=== PATIENT | female | born 1950 | race Caucasian/White ===

== ENCOUNTER 2017-03-09 08:35 | Emergency (ER) | payer MEDICARE ==
--- NOTE | 2017-03-09 08:40 | PDOC ---
History of Present Illness - General Stated Complaint: HEADACHE Time Seen by Provider: 03/09/17 08:40 - History of Present Illness Initial Comments: 03/09/17 08:59 66yo female presents ambulatory from home c/o L facial pressure and ricks. States she suffers from sinusitis and gets sinusitis every 2-3 months. States she started with a gradual onset of sinusitis on Friday. Saw a [facility] PMD on friday who started tessalon cough medicine and augmentin for poss sinusitis. States the ricks and facial pressure has not lessened. Denies f/c. No meningeal signs. States she is coughing - nonproductive. States she has been using nasal spray, but feels congested. No sore throat. States nausea - no vomiting or diarrhea. No abd pain. States she hasn't eaten since Friday. Denies blurred vision. States cp only when coughing, but feels SOB with the cough. Denies all other complaints. PMHx: HTN, HLD, Hypothyroid quit smoking 25 years ago NKDA 03/09/17 09:02 Past History - Past Medical History Allergies/Adverse Reactions: Allergies Allergy/AdvReac Type Severity Reaction Status Date / Time No Known Allergies Allergy Verified 03/09/17 08:48 Home Medications: Ambulatory Orders Fluvastatin Na [LESCOL (Nf) -] 20 mg PO DAILY 02/06/15 Levothyroxine [Synthroid -] 25 mcg PO DAILY 02/06/15 Albuterol Sulfate Inhaler - [Ventolin HFA Inhaler -] 1 - 2 inh PO Q4H PRN #1 inhaler 03/09/17 Atenolol [Tenormin -] 50 mg PO DAILY 03/09/17 Doxycycline Hyclate 100 mg PO BID #14 capsule 03/09/17 Inhaler, Assist Devices [Space Chamber Plus] 1 each MC Q4H PRN #1 spacer Lisinopril 20 mg PO DAILY 03/09/17 HTN: Yes Hypercholesterolemia: Yes Thyroid Disease: Yes (HYPO) - Suicide/Smoking/Psychosocial Hx Smoking History: Former smoker Number of Cigarettes Smoked Daily: 20 If you are a former smoker, when did you quit?: 25 YRS Hx Alcohol Use: No Drug/Substance Use Hx: No Substance Use Type: None Review of Systems - Review of Systems Able to Perform ROS?: Yes Is the patient limited Sinhala proficient: No Constitutional: No: Chills, Fever HEENTM: Yes: Nose Congestion. No: Eye Pain, Blurred Vision, Double Vision, Tinnitus, Throat Pain, Mouth Pain Respiratory: Yes: Cough, Shortness of Breath. No: Orthopnea, Wheezing, Productive cough Cardiac (ROS): Yes: Chest Tightness. No: Chest Pain, Irregular Heart Rate, Palpitations ABD/GI: Yes: Nausea, Poor Appetite, Poor Fluid Intake. No: Abdominal Distended , Diarrhea, Vomiting : No: Burning, Dysuria Musculoskeletal: No: Back Pain Neurological: Yes: Headache, Dizziness. No: Numbness, Paresthesia, Weakness All Other Systems: Reviewed and Negative *Physical Exam - Vital Signs 03/09/17 08:59 Selected Entries 03/09/17 08:39 Temperature 98.8 F Pulse Rate 104 H Respiratory 18 Rate Blood Pressure 159/83 Blood Pressure 108 Mean O2 Sat by Pulse 97 Oximetry (%) Weight 81.647 kg - Physical Exam General Appearance: Yes: Nourished, Appropriately Dressed, Apparent Distress, Moderate Distress HEENT: positive: EOMI, NEDRA, Normal Voice, Symmetrical, TMs Normal, Pharynx Normal, Nasal Congestion, Sinus Tenderness. negative: Pharyngeal Erythema, Tonsillar Exudate, Tonsillar Erythema, Rhinorrhea, TM Bulging Neck: positive: Supple. negative: Tender, Rigid, Rigidity Respiratory/Chest: positive: Lungs Clear, Normal Breath Sounds. negative: Respiratory Distress Cardiovascular: positive: Regular Rhythm, S1, S2, Tachycardia Gastrointestinal/Abdominal: positive: Flat, Soft. negative: Guarding, Rebound Lymphatic: negative: Adenopathy Musculoskeletal: negative: Normal Inspection, CVA Tenderness Extremity: positive: Normal Capillary Refill, Normal Inspection, Normal Range of Motion. negative: Calf Tenderness Integumentary: positive: Normal Color, Dry, Warm Neurologic: positive: assembler gold frame II-XII NML intact, Fully Oriented, Alert, Normal Mood/ Affect, Normal Response, Motor Strength 5/5 Heart Score/ECG Review - ECG Intrepretation Comment:: 03/09/17 09:09 sinus at 98, nl axis, nl interval, no acute st/t wave findings ED Treatment Course - LABORATORY CBC & Chemistry Diagram: 03/09/17 11:45 03/09/17 09:15 Medical Decision Making - Medical Decision Making 03/09/17 09:05 a/p: 66yo female with persistent ricks x 5 days -has been on abx since friday -suspect nausea secondary to augmentin use without oral intake -suspect poss viral sinusitis given that the patient has not had f/c and was gradual onset -will check labs, ekg, cxr, head ct -will hydrate and give reglan for nausea/ricks -will monitor and reassess -albuterol/atrovent for cough/chest tightness (smoking hx in the past) 03/09/17 10:03 called by lab, WBC 1.9 pt states still with ricks, but starting to feel better no meningeal signs breathing better after neb 03/09/17 10:53 re-eval: pt feeling better. RICKS and nausea resolved. Still with bronchial cough. cxr clear will give another liter IVF hydration and will po challenge 03/09/17 11:07 L sinusitis on head ct pt on augmentin 500mg will change to 875, will give albuterol inhaler to go home RICKS resolved. 03/09/17 11:25 pt sitting up eating lunch 03/09/17 12:17 pt has been on augmentin since friday - will switch to doxycycline low wbc and plts discussed with the patient. both could be side effects of augmentin will switch abx this was discussed in full detail with the patient who states she will have her CBC checked again in 1 week with [facility]. Also recommended ENT follow up. Discussed all reasons to return to the ED and need for follow up. Recommended sinus rinses as well. *DC/Admit/Observation/Transfer Diagnosis at time of Disposition: Sinusitis, Thrombocytopenia, Leukopenia - Discharge Dispostion Disposition: HOME Condition at time of disposition: Stable Admit: No - Prescriptions Prescriptions: Albuterol Sulfate Inhaler - [Ventolin HFA Inhaler -] 1 - 2 inh PO Q4H PRN #1 inhaler PRN Reason: Shortness Of Breath Doxycycline Hyclate 100 mg PO BID #14 capsule Inhaler, Assist Devices [Space Chamber Plus] 1 each MC Q4H PRN #1 spacer PRN Reason: Shortness Of Breath - Referrals Referrals: Christophe Mancini MD [Staff Physician] - Grzegorz Reid MD [Staff Physician] - - Patient Instructions Printed Discharge Instructions: DI for Sinusitis, White Blood Cell Count, With Differential Additional Instructions: Please have your CBC repeat in 1 week. Please stop taking augmentin. Please start taking doxycycline. Please use the Sinus Rinse (over the counter). Please make a follow up appointment with your PMD this week and make a follow up appointment with ENT. Please return to the ED with any further complaints. - Post Discharge Activity
[2017-03-09] MEDS ORDERED: METOCLOPRAMIDE HCL INJECTION 10 MG/2 ML VIAL IVPUSH ONE (08:46)
[2017-03-09] MEDS ORDERED: SODIUM CHLORIDE 0.9% 1000 ML INFUS.BAG IV ONE ×2 (08:46→10:49)
[2017-03-09] MEDS ORDERED: ACETAMINOPHEN 1000 MG/100 ML VIAL (NON FORMULARY) IVPB ONE (08:46)
[2017-03-09 08:50] VITALS: BMI 30.9
[2017-03-09] MEDS ORDERED: ACETAMINOPHEN INJECTION 100 ML IVPB ONE (09:03)
[2017-03-09] MEDS ORDERED: ALBUTEROL SO4 2.5/IPRATROPIUM 0.5 INH SOL 3 ML VIAL.NEB. NEB ONE ×4 (09:05→11:27)
[2017-03-09 09:42] LABS: MCH 30.4 pg (25.7-33.7); MCHC 33.7 g/dl (32.0-36.0); MEAN CELL VOLUME 90.2 fl (80-96); MEAN PLT VOLUME 8.9 fl (7.5-11.1); PLATELET COUNT 144 K/MM3 (134-434)
[2017-03-09 09:59] LABS: WHITE BLOOD COUNT 1.9 K/mm3 (4.0-10.8)
[2017-03-09] MEDS ORDERED: DEXAMETHASONE SOD PHOSPHATE 10 MG/1 ML VIAL IVPUSH ONE (10:03)
[2017-03-09] MEDS ORDERED: MAGNESIUM SULF 50% (8.12 MEQ/2 ML-1 GM VIAL) IVPB ONE (10:03)
[2017-03-09] MEDS ORDERED: DEXAMETHASONE SOD PHOSPHATE 10 MG/1 ML VIAL ONE (10:07)
[2017-03-09] MEDS ORDERED: MAGNESIUM SULF 50% (8.12 MEQ/2 ML-1 GM VIAL) ONE (10:07)
[2017-03-09 10:23] LABS: ALBUMIN 4.3 g/dl (3.5-5.0); ALK PHOS 60 U/L (32-92); ANION GAP 11 (8-16); BILIRUBIN,TOTAL 0.5 mg/dl (0.2-1.0); CO2 23 mmol/L (22-28); CREATININE 0.8 mg/dl (0.6-1.3); GLUCOSE,RANDOM 100 mg/dl (74-106); MAGNESIUM 1.8 mg/dL (1.8-2.4); SGOT/AST 36 U/L (10-42); SGPT/ALT 23 U/L (10-40); TOT PROT 7.5 g/dl (6.4-8.3)
[2017-03-09] MEDS ORDERED: KETOROLAC TROMETHAMINE 15 MG/ML VIAL IVPUSH ONE (11:04)
[2017-03-09] MEDS ORDERED: AMOX TR/POT CLAV 875MG/125MG TABLETS (FP) PO ONE (11:06)
[2017-03-09] MEDS ORDERED: AMOX TR/POT CLAV 875MG/125MG TABLETS (FP) ONE (11:28)
[2017-03-09] MEDS ORDERED: KETOROLAC TROMETHAMINE 15 MG/ML VIAL ONE (11:28)
[2017-03-09 11:56] VITALS: BP 114/45; PULSE 86; TEMP 98.9
[2017-03-09 12:02] LABS: MCH 30.1 pg (25.7-33.7); MCHC 33.3 g/dl (32.0-36.0); MEAN CELL VOLUME 90.4 fl (80-96); MEAN PLT VOLUME 8.5 fl (7.5-11.1); PLATELET COUNT 120 K/MM3 (134-434); RDW 12.2 % (11.6-15.6); WHITE BLOOD COUNT 2.1 K/mm3 (4.0-10.8)
[2017-03-09 12:45] LABS: REACTIVE LYMPHOCYTES 7 % (0-80); SMUDGE CELLS 1+
[2017-03-09 12:50] LABS: PLATELET COMMENTS SLT PLT CLUMPING; PLATELET ESTIMATE ADEQUATE
--- NOTE | 2017-03-10 12:17 | EKG ---
Test Reason : Blood Pressure : / mmHG Vent. Rate : 098 BPM Atrial Rate : 098 BPM P-R Int : 144 ms QRS Dur : 078 ms QT Int : 348 ms P-R-T Axes : 020 -04 025 degrees QTc Int : 444 ms NORMAL SINUS RHYTHM NORMAL ECG NO PREVIOUS ECGS AVAILABLE Confirmed by JV HERNANDEZ MD ([id number] on 03/10/2017 12:17:23 PM Referred By: UVALDO Confirmed By:JV HERNANDEZ MD
== END 2017-03-09 12:42 | disposition home or self-care (01) ==
LOC: FER 08:35
PROC: 3E0337Z Introduction of Electrolytic and Water Balance Substance into Peripheral Vein, Percutaneous Approach (ICD-10-PCS; principal; 2017-03-09)
PROC: 3E033GC Introduction of Other Therapeutic Substance into Peripheral Vein, Percutaneous Approach (ICD-10-PCS; 2017-03-09)
PROC: 3E0333Z Introduction of Anti-inflammatory into Peripheral Vein, Percutaneous Approach (ICD-10-PCS; 2017-03-09)
PROC: 3E033NZ Introduction of Analgesics, Hypnotics, Sedatives into Peripheral Vein, Percutaneous Approach (ICD-10-PCS; 2017-03-09)
DX: J32.9 Chronic sinusitis, unspecified (principal); D69.6 Thrombocytopenia, unspecified; D72.819 Decreased white blood cell count, unspecified
CPT/HCPCS: 36415; 70450-TC; 71020-TC; 80053; 83735; 85025; 93005; 99283-25

== ENCOUNTER 2017-03-13 08:06 | Emergency (ER) | payer MEDICARE ==
[2017-03-13 08:12] VITALS: BP 177/87; PULSE 85; TEMP 97.4; BMI 30.9
[2017-03-13] MEDS ORDERED: MECLIZINE HCL 25 MG TABLET (FP) PO ONE (08:56)
[2017-03-13] MEDS ORDERED: SODIUM CHLORIDE 0.9% 500 ML INFUS.BAG IV ONE ×2 (08:56→10:22)
[2017-03-13] MEDS ORDERED: ONDANSETRON 4 MG/2 ML VIAL IVPUSH ONE (08:56)
[2017-03-13] MEDS ORDERED: MECLIZINE HCL 25 MG TABLET (FP) ONE (08:58)
[2017-03-13] MEDS ORDERED: ONDANSETRON 4 MG/2 ML VIAL ONE (08:58)
--- NOTE | 2017-03-13 09:12 | PDOC ---
History of Present Illness - General Chief Complaint: Lightheaded Stated Complaint: DIZZY,SINUS INFECTION Time Seen by Provider: 03/13/17 08:56 History Source: Patient Exam Limitations: No Limitations - History of Present Illness Initial Comments: 03/13/17 08:58 Pt presents to the ED complaining of nasal congestion, sinus pressure and vertigo that have been persistent for the last 8 days. These symptoms are consistent with prior sinus infections. Denies fevers, but does complain of chills. Patient was seen by her PMD for these complaints and started on augmentin. Her symptoms did not improve, so she presented to the [place] ED on 03/09. While there, she had a CT scan that demonstrated maxillary sinusitis and a CXR that was negative. She had a mildly decreased WBC count, so antibiotics were changed from augmentin to doxycycline. She presents today because she still has nasal congestion and because she had an episode of vertigo that was accompanied by severe nausea and vomiting this AM. She is very clear that episodes of vertigo always accompany her sinus infections, and that her symptoms today are similar to previous sinus infections. Patient states that she has had decreased appetite for solid food, but that she has been tolerating PO fluids until this AM. Past History - Past Medical History Allergies/Adverse Reactions: Allergies Allergy/AdvReac Type Severity Reaction Status Date / Time No Known Allergies Allergy Verified 03/09/17 08:48 Home Medications: Ambulatory Orders Fluvastatin Na [LESCOL (Nf) -] 20 mg PO DAILY 02/06/15 Levothyroxine [Synthroid -] 25 mcg PO DAILY 02/06/15 Atenolol [Tenormin -] 50 mg PO DAILY 03/09/17 Doxycycline Hyclate 100 mg PO BID #14 capsule 03/09/17 Lisinopril 20 mg PO DAILY 03/09/17 Meclizine HCl [Antivert -] 25 mg PO QID #28 tablet 03/13/17 Ondansetron [Zofran Odt -] 4 mg SL TID PRN #10 od.tablet 03/13/17 COPD: No HTN: Yes Hypercholesterolemia: Yes Thyroid Disease: Yes (HYPO) - Suicide/Smoking/Psychosocial Hx Smoking History: Former smoker Have you smoked in the past 12 months: No Number of Cigarettes Smoked Daily: 20 If you are a former smoker, when did you quit?: 25 YRS Information on smoking cessation initiated: No Hx Alcohol Use: No Drug/Substance Use Hx: No Substance Use Type: None Review of Systems - Review of Systems Constitutional: Yes: Chills, Loss of Appetite, Malaise. No: Symptoms Reported, See HPI, Diaphoresis, Fever, Night Sweats, Weakness, Weight Stable, Unintentional Wgt. Loss, Unexplained wgt Loss, Other HEENTM: Yes: Nose Congestion, Throat Pain. No: Symptoms Reported, See HPI, Eye Pain, Blurred Vision, Tearing, Recent change in vision, Double Vision, Cataracts , Ear Pain, Ocular Prothesis, Ear Discharge, Nose Pain, Tinnitus, Nose Bleeding , Hearing Loss, Throat Swelling, Mouth Pain, Dental Problems, Difficulty Swallowing, Mouth Swelling, Other Respiratory: Yes: Cough. No: Symptoms reported, See HPI, Orthopnea, Shortness of Breath, SOB with Exertion, SOB at Rest, Stridor, Wheezing, Productive cough, Hemoptysis, Other Cardiac (ROS): No: Symptoms Reported, See HPI, Chest Pain, Edema, Irregular Heart Rate, Lightheadedness, Palpitations, Syncope, Chest Tightness, Other ABD/GI: Yes: Nausea, Vomiting. No: Symptoms Reported, See HPI, Abdominal Distended, Abd. Pain w/ defecation, Blood Streaked Bowels, Constipated, Diarrhea , Difficulty Swallowing, Poor Appetite, Poor Fluid Intake, Rectal Bleeding, Indigestion, Abdominal cramping, Tarry Stools, Other Musculoskeletal: No: Symptoms Reported, See HPI, Back Pain, Gout, Joint Pain, Joint Swelling, Muscle Pain, Muscle Weakness, Neck Pain, Joint Stiffness, Other Integumentary: No: Symptoms Reported, See HPI, Bruising, Change in Color, Change in Hair/Nails, Dryness, Erythema, Flushing, Lesions, Lumps, Pallor, Pruritus, Rash, Sweating, Other Neurological: Yes: Headache, Dizziness. No: Symptoms reported, See HPI, Numbness, Paresthesia, Pre-Existing Deficit, Seizure, Tingling, Tremors, Weakness, Unsteady Gait, Ataxia, Other *Physical Exam - Vital Signs Last Vital Signs Temp Pulse Resp BP Pulse Ox 97.4 F L 85 20 177/87 100 03/13/17 08:06 03/13/17 08:06 03/13/17 08:06 03/13/17 08:06 03/13/17 08:06 - Physical Exam General Appearance: Yes: Nourished, Appropriately Dressed, Obese. No: Apparent Distress, Disheveled, Mild Distress, Moderate Distress, Severe Distress, Alcohol on Breath, Intoxicated, Cachetic, Thin, Other HEENT: positive: Normal ENT Inspection, Normal Voice, TMs Normal, Pharyngeal Erythema, Nasal Congestion, Sinus Tenderness, Hearing Grossly Normal Neck: positive: Trachea midline, Supple Respiratory/Chest: positive: Rhonchi (+ rhonchi at both bases) Cardiovascular: positive: Regular Rhythm, Regular Rate, S1, S2 Gastrointestinal/Abdominal: positive: Flat, Soft. negative: Normal Bowel Sounds , Tender, Organomegaly, Pulsatile Mass, Increased Bowel Sounds, Decreased BS, Protuberent, Distended, Guarding, Rebound, Tenderness, Hernia, Mass, Hepatomegaly, Spleenomegaly, Other Musculoskeletal: positive: Normal Inspection Integumentary: positive: Normal Color, Dry, Warm Neurologic: positive: health information clerk II-XII NML intact, Fully Oriented, Alert, Normal Mood/ Affect, Motor Strength 5/5 (normal gait) Medical Decision Making - Medical Decision Making 03/13/17 09:15 Pt presents to the ED complaining of persistent sinus discomfort after 4 days of antibotics. complains of vertigo, but symptoms are unlikely to be caused by central vertigo since she is neurologically intact and able to ambulate with a steady gait, and since she reports vertigo that recurs with her sinus infections. Patient has already had CT head that showed maxillary sinusitis and CXR that was clear. Although lungs are not clear on my exam, patient has recent negative CXR and is already on antibiotics that are appropriate for PNA. Will treat symptomatically with Iv hydration, zofran and meclizine and reassess. 03/13/17 12:19 Patient feels improved after IV hydration, vertigo treatment and nausea control. Will discharge home. *DC/Admit/Observation/Transfer Diagnosis at time of Disposition: Vertigo Sinusitis Qualifiers: Sinusitis location: maxillary Chronicity: acute Recurrence: recurrent Qualified Code(s): J01.01 - Acute recurrent maxillary sinusitis - Discharge Dispostion Disposition: HOME Condition at time of disposition: Good Admit: No - Prescriptions Prescriptions: Meclizine HCl [Antivert -] 25 mg PO QID #28 tablet Ondansetron [Zofran Odt -] 4 mg SL TID PRN #10 od.tablet PRN Reason: Nausea And/Or Vomiting - Referrals Referrals: Harish Suarez MD [Staff Physician] - - Patient Instructions Printed Discharge Instructions: DI for Vertigo Additional Instructions: return to the ED for fever, shortness of breath, severe nausea and vomiting unable to keep fluids down despite zofran, vertigo that is so severe that you are unable to walk, other new or worsening symptoms. Make sure that you call ENT for an appointment. Follow up with your PMD this week. MAke sure that you take the doxycycline until it is all gone. - Post Discharge Activity
[2017-03-13] MEDS ORDERED: diazePAM CARPU-JECT 10 MG/2 ML DISP.SYRIN IVPUSH ONE (10:20)
[2017-03-13] MEDS ORDERED: METOCLOPRAMIDE HCL INJECTION 10 MG/2 ML VIAL IVPUSH ONE (10:20)
[2017-03-13] MEDS ORDERED: LORazepam 2 MG/ML SDV VIAL ONE (10:29)
== END 2017-03-13 12:29 | disposition home or self-care (01) ==
LOC: FER 08:06
PROC: 3E0337Z Introduction of Electrolytic and Water Balance Substance into Peripheral Vein, Percutaneous Approach (ICD-10-PCS; principal; 2017-03-13)
DX: R42 Dizziness and giddiness (principal); J01.01 Acute recurrent maxillary sinusitis; I10 Essential (primary) hypertension; Z87.891 Personal history of nicotine dependence; E03.9 Hypothyroidism, unspecified; E78.00 Pure hypercholesterolemia, unspecified
CPT/HCPCS: 99284-25

== ENCOUNTER 2018-05-04 09:37 | Inpatient (IN) | payer OTHER ==
--- NOTE | 2018-05-04 09:40 | PDOC ---
History of Present Illness - General Chief Complaint: Injury Stated Complaint: FALL Time Seen by Provider: 05/04/18 09:40 History Source: Patient Exam Limitations: No Limitations - History of Present Illness Initial Comments: 05/04/18 09:49 67 year old woman with a history of HTN who presents after walking her dog outside and slipping ice such that her right foot slipped forward and she landed on her R hip. She was unable to stand up or bear weight and crawled to a chair where she called for help for approx 1 hour until her found her and called EMS. She does not take any anticoagulants. She has not been able to bear weight since the fall and describes the pain as localized to the R hip with occasional shooting pain. She denies head or neck trauma, loss of consciousness, chest pain, shortness of breath, abdominal pain or any other complaints at bedside. She is in visible distress and crying at bedside. Past History - Past Medical History Allergies/Adverse Reactions: Allergies Allergy/AdvReac Type Severity Reaction Status Date / Time No Known Allergies Allergy Verified 05/04/18 10:06 Home Medications: Ambulatory Orders Fluvastatin Na [LESCOL (Nf) -] 20 mg PO DAILY 02/06/15 Levothyroxine [Synthroid -] 25 mcg PO DAILY 02/06/15 Atenolol [Tenormin -] 50 mg PO DAILY 03/09/17 Doxycycline Hyclate 100 mg PO BID #14 capsule 03/09/17 Lisinopril 20 mg PO DAILY 03/09/17 Meclizine HCl [Antivert -] 25 mg PO QID #28 tablet 03/13/17 Ondansetron [Zofran Odt -] 4 mg SL TID PRN #10 od.tablet 03/13/17 COPD: No HTN: Yes Hypercholesterolemia: Yes Thyroid Disease: Yes (HYPO) - Suicide/Smoking/Psychosocial Hx Smoking History: Former smoker Have you smoked in the past 12 months: No Number of Cigarettes Smoked Daily: 20 If you are a former smoker, when did you quit?: 25 YRS Hx Alcohol Use: No Drug/Substance Use Hx: No Substance Use Type: None Review of Systems - Review of Systems Able to Perform ROS?: Yes Is the patient limited Lao proficient: No Constitutional: No: Chills, Diaphoresis, Fever HEENTM: No: Tinnitus Respiratory: No: Cough, Orthopnea, Shortness of Breath Cardiac (ROS): No: Chest Pain, Lightheadedness, Palpitations, Syncope ABD/GI: No: Constipated, Diarrhea, Nausea, Vomiting : No: Burning, Dysuria, Incontinence Musculoskeletal: Yes: Joint Pain, Muscle Pain Neurological: No: Headache, Numbness, Tingling *Physical Exam - Physical Exam Comments: 05/04/18 10:06 GENERAL: Awake, alert, and fully oriented, in distress, crying HEAD: No signs of trauma, normocephalic, atraumatic EYES: EOMI, sclera anicteric, conjunctiva clear ENT: oropharynx clear without exudates. Moist mucosa NECK: Normal ROM, supple LUNGS: No distress, speaks full sentences, clear to auscultation bilaterally HEART: Regular rate and rhythm, normal S1 and S2, no murmurs, rubs or gallops, peripheral pulses normal and equal bilaterally. ABDOMEN: Soft, nontender, normoactive bowel sounds. No guarding, no rebound. No masses EXTREMITIES : Normal inspection, limited R hip and R knee ROM 2/2 pain, 5/5 dorsal and plantar flexion, nv intact, no pain to direct R hip palpation, no edema. No clubbing or cyanosis. NEUROLOGICAL: Cranial nerves II through XII grossly intact. Normal speech, no focal sensorimotor deficits SKIN: Warm, Dry, normal turgor, no rashes or lesions noted ED Treatment Course - LABORATORY CBC & Chemistry Diagram: 05/04/18 09:54 05/04/18 09:54 Medical Decision Making - Medical Decision Making 05/04/18 09:53 67 year old woman with a history of HTN who presents after walking her dog outside and slipping ice such that her right foot slipped forward and she landed on her R hip. She was unable to stand up or bear weight and crawled to a chair where she called for help for approx 1 hour until her found her and called EMS. She does not take any anticoagulants. She has not been able to bear weight since the fall and describes the pain as localized to the R hip with occasional shooting pain. ED Course: consider fx vs dislocation vs contusion cbc, cmp, typescreen, ptt, pt/inr, xr, ekg, cxr pain manage with IV 4 morphine 05/04/18 11:18 labs wnl XR w/ R displaced introtrochanter fx CXR: *DC/Admit/Observation/Transfer Diagnosis at time of Disposition: Closed right hip fracture Qualifiers: Encounter type: initial encounter Qualified Code(s): S72.001A - Fracture of unspecified part of neck of right femur, initial encounter for closed fracture - Discharge Dispostion Condition at time of disposition: Fair Decision to Admit order: Yes - Referrals - Patient Instructions - Post Discharge Activity
[2018-05-04] MEDS ORDERED: morphine CARPU-JECT 4 MG/1 ML DISP.SYRIN IVPUSH ONE (09:47)
[2018-05-04 10:14] LABS: BASO % 0.4 % (0-2.0); EOS % 0.7 % (0-4.5); HEMATOCRIT 37.8 % (32.4-45.2); HEMOGLOBIN 13.1 GM/dL (10.7-15.3); LYMPH % 21.6 % (8-40); MCH 31.3 pg (25.7-33.7); MCHC 34.5 g/dl (32.0-36.0); MEAN CELL VOLUME 90.6 fl (80-96); MEAN PLT VOLUME 8.4 fl (7.5-11.1); MONO % 4.9 % (3.8-10.2); NEUT % 72.4 % (42.8-82.8); PLATELET COUNT 188 K/MM3 (134-434); RBC 4.17 M/mm3 (3.60-5.2); WHITE BLOOD COUNT 6.9 K/mm3 (4.0-10.0)
--- NOTE | 2018-05-04 10:19 | PDOC ---
Attending Attestation - Resident Resident Name: Johanna Thurston - ED Attending Attestation I have performed the following: I have examined & evaluated the patient, The case was reviewed & discussed with the resident, I agree w/resident's findings & plan, Exceptions are as noted - HPI HPI: 05/04/18 10:13 67 year old female c/ hx of HTN presents with R hip pain s/p mechanical fall. Pt slipped on ice. Landed on right hip. Has not been able to get up. Denies numbness, weakness. C/o R hip pain. EMS activated and pt given 10 mg IM morphine. - Physicial Exam PE: 05/04/18 10:19 GENERAL: Awake, alert, and fully oriented, uncomfortable appearing HEAD: No signs of trauma EYES: EOMI, sclera anicteric, conjunctiva clear ENT: Auricles normal inspection, hearing grossly normal, nares patent, Moist mucosa NECK: Normal ROM, supple LUNGS: Breath sounds equal, clear to auscultation bilaterally. No wheezes, and no crackles HEART: Regular rate and rhythm, normal S1 and S2, no murmurs, rubs or gallops ABDOMEN: Soft, nontender, No guarding, no rebound. No masses EXTREMITIES: RLE: 2+ DP pulse. TTP R lateral hip. Shortened and externally rotated. Sensation intact throughout. No tenderness to R knee or ankle or femur. NEUROLOGICAL: Cranial nerves II through XII grossly intact. Normal speech SKIN: Warm, Dry, normal turgor, no rashes or lesions noted. - Medical Decision Making 05/04/18 10:20 Vital Signs Temp Pulse Resp BP Pulse Ox 98.3 F 97 H 20 149/73 99 05/04/18 09:39 05/04/18 09:39 05/04/18 09:39 05/04/18 09:39 05/04/18 09:39 R/o r hip fracture. Pt is neurovascularly intact. I agree with resident's plan for xray of R hip and pelvis. Labs, pain control and reassess. 05/04/18 11:08 CBC, BMP 05/04/18 09:54 05/04/18 09:54 CMP Sodium 141 mmol/L (136-145) 05/04/18 09:54 Potassium 3.7 mmol/L (3.5-5.1) 05/04/18 09:54 Chloride 107 mmol/L (98-107) 05/04/18 09:54 Carbon Dioxide 26 mmol/L (21-32) 05/04/18 09:54 Anion Gap 9 MMOL/L (8-16) 05/04/18 09:54 BUN 16 mg/dL (7-18) 05/04/18 09:54 Creatinine 0.8 mg/dL (0.55-1.3) 05/04/18 09:54 Creat Clearance w eGFR > 60 (>60) 05/04/18 09:54 Random Glucose 119 mg/dL (74-106) H 05/04/18 09:54 Calcium 9.0 mg/dL (8.5-10.1) 05/04/18 09:54 Total Bilirubin 0.4 mg/dL (0.2-1) 05/04/18 09:54 AST 13 U/L (15-37) L 05/04/18 09:54 ALT 17 U/L (13-61) 05/04/18 09:54 Alkaline Phosphatase 88 U/L (45-117) 05/04/18 09:54 Creatine Kinase 80 U/L (26-192) 05/04/18 09:54 Total Protein 7.5 g/dl (6.4-8.2) 05/04/18 09:54 Albumin 4.4 g/dl (3.4-5.0) 05/04/18 09:54 Pelvis xray, pending official review, demonstrates R hip fracture. Ortho consult. Admit. <Edwin Phillips - Last Filed: 05/04/18 11:09> - Medical Decision Making Call placed to taj Villatoro environmental compliance technician, made aware to make NPO now and he will see patient. 05/04/18 12:46 <Vini Champion - Last Filed: 05/04/18 12:48> Heart Score/ECG Review #1 ECG reviewed & interpreted by me at: 11:10 05/04/18 11:09 NSR 90, no std/geo, normal axis, normal intervals, QTC 484 msec <Edwin Phillips - Last Filed: 05/04/18 11:09> Attestations - Attestations 05/04/18 12:48 Documentation prepared by Vini Champion, acting as medical facilities section director for Edwin Pihllips MD. <Vini Champion - Last Filed: 05/04/18 12:48>
[2018-05-04] MEDS ORDERED: morphine SULFATE 4 MG/ML VIAL ONE (10:22)
[2018-05-04 10:32] LABS: INR 1.04 (0.83-1.09); PROTHROMBIN TIME (PATIENT) 12.3 SEC (9.7-13.0)
[2018-05-04 10:33] LABS: ALBUMIN 4.4 g/dl (3.4-5.0); ALK PHOS 88 U/L (45-117); ANION GAP 9 MMOL/L (8-16); BILIRUBIN,TOTAL 0.4 mg/dL (0.2-1); BLOOD UREA NITROGEN 16 mg/dL (7-18); CHLORIDE 107 mmol/L (98-107); CO2 26 mmol/L (21-32); CREATININE 0.8 mg/dL (0.55-1.3); GLUCOSE,RANDOM 119 mg/dL (74-106); POTASSIUM 3.7 mmol/L (3.5-5.1); SGOT/AST 13 U/L (15-37); SGPT/ALT 17 U/L (13-61); SODIUM 141 mmol/L (136-145); TOT PROT 7.5 g/dl (6.4-8.2)
[2018-05-04 10:35] LABS: ACTIVATED PTT 24.1 SECONDS (25.2-36.5)
--- NOTE | 2018-05-04 13:52 | EKG ---
Test Reason : Blood Pressure : / mmHG Vent. Rate : 090 BPM Atrial Rate : 090 BPM P-R Int : 142 ms QRS Dur : 088 ms QT Int : 396 ms P-R-T Axes : 061 023 035 degrees QTc Int : 484 ms NORMAL SINUS RHYTHM NONSPECIFIC ST ABNORMALITY ABNORMAL ECG WHEN COMPARED WITH ECG OF 09-MAR-2017 09:06, NO SIGNIFICANT CHANGE WAS FOUND Confirmed by CÉSAR MEEKS MD ([id number]) on 05/04/2018 1:51:58 PM Referred By: Confirmed By:CÉSAR MEEKS MD
--- NOTE | 2018-05-04 13:56 | CON.CARD ---
Consult Consult Specialty:: Cardiology Referred by:: Sandie Dyson MD Reason for Consultation:: Pre-operative cardiovascular evaluation - History of Present Illness Chief Complaint: s/p slip and fall History of Present Illness: 67 yo female with h/o HTN, hypothyroidism, hyperlipidemia, benign positional vertigo s/p slip on black ice and mechanical fall onto right hip pain and unable to weight bear, denies numbness or weaknes referable to right hip fracture planned for right IM gamma nail. She reports stable LEBRON while climbing stairs, but denies chest pain, near or true syncope, palpitations, orthopnea, PND or LE edema, vertigo prior to incident or change in exercise capacity. - History Source History Provided By: Patient Limitations to Obtaining History: No Limitations - Alcohol/Substance Use Hx Alcohol Use: No - Smoking History Smoking history: Former smoker Have you smoked in the past 12 months: No Aproximately how many cigarettes per day: 20 If you are a former smoker, when did you quit?: 25 YRS Home Medications - Allergies Allergies/Adverse Reactions: Allergies Allergy/AdvReac Type Severity Reaction Status Date / Time No Known Allergies Allergy Verified 05/04/18 10:06 - Home Medications Home Medications: Ambulatory Orders Levothyroxine [Synthroid -] 25 mcg PO DAILY 02/06/15 Atenolol [Tenormin -] 50 mg PO DAILY 03/09/17 Lisinopril 5 mg PO DAILY 05/04/18 Mometasone Furoate [Asmanex 110Mcg -] 1 inh IH DAILY 05/04/18 Simvastatin [Zocor -] 20 mg PO HS 05/04/18 Review of Systems - Review of Systems Musculoskeletal: reports: Joint Pain (Right hip pain) Vital Signs: Vital Signs Temperature 98.3 F 05/04/18 09:39 Pulse Rate 97 H 05/04/18 09:39 Respiratory Rate 20 05/04/18 09:39 Blood Pressure 149/73 05/04/18 09:39 O2 Sat by Pulse Oximetry (%) 99 05/04/18 10:06 Constitutional: Yes: No Distress, Calm Neck: Yes: Supple Respiratory: Yes: Regular, CTA Bilaterally Gastrointestinal: Yes: Normal Bowel Sounds, Soft Cardiovascular: Yes: Regular Rate and Rhythm JVD: No Carotid Bruit: No Heart Sounds: Yes: S1, S2 Extremities: Yes: External Rotation, Shortened Edema: No - Other Data Labs, Other Data: CBC, BMP 05/04/18 09:54 05/04/18 09:54 INR, PTT INR 1.04 (0.83-1.09) 05/04/18 09:54 NSR @ 90 nonspec T wave changes Ejection Fraction %: LVEF > or = 40 % Imaging - Results Chest X-ray: Report Reviewed (NAD) X-ray: Report Reviewed (Right IT fracture) EKG: Report Reviewed (SR @ 90) Problem List - Problems (1) Hypertension Code(s): I10 - ESSENTIAL (PRIMARY) HYPERTENSION Qualifiers: Hypertension type: essential hypertension Qualified Code(s): I10 - Essential (primary) hypertension (2) Hyperlipidemia Code(s): E78.5 - HYPERLIPIDEMIA, UNSPECIFIED Qualifiers: Hyperlipidemia type: pure hypercholesterolemia Qualified Code(s): E78.00 - Pure hypercholesterolemia, unspecified; E78.0 - Pure hypercholesterolemia (3) Hypothyroidism Code(s): E03.9 - HYPOTHYROIDISM, UNSPECIFIED Qualifiers: Hypothyroidism type: unspecified Qualified Code(s): E03.9 - Hypothyroidism , unspecified (4) Closed right hip fracture Code(s): S72.001A - FRACTURE OF UNSP PART OF NECK OF RIGHT FEMUR, INIT Qualifiers: Encounter type: initial encounter Qualified Code(s): S72.001A - Fracture of unspecified part of neck of right femur, initial encounter for closed fracture (5) Vertigo Code(s): R42 - DIZZINESS AND GIDDINESS Assessment/Plan 1. Pre-operative cardiovascular evaluation 2. s/p mechanical fall and right IT fracture 3. HTN 4. Hypothyroidism 5. Hyperlipidemia P:1. Given absence of symptoms of acute coronary syndrome, decompensated CHF or malignant arrhythmia, may proceed with orthopedic procedure from CV-standpoint without further testing 2. Continue Atenolol 25 qd, lisinopril 5 qd, Zocor 20 qhs 3. Analgesia as needed, DVT prophylaxis 4. Thank you for consultative opportunity
[2018-05-04] MEDS ORDERED: SODIUM CHLORIDE 1,000 ML IV STA (14:04)
--- NOTE | 2018-05-04 14:33 | HP ---
Admitting History and Physical - Primary Care Physician PCP: Sandie Dyson - Admission History of Present Illness: 67 year old woman with a history of HTN who presents after walking her dog outside and slipping ice such that her right foot slipped forward and she landed on her R hip. She was unable to stand up or bear weight and crawled to a chair where she called for help for approx 1 hour until her found her and called EMS. She does not take any anticoagulants. She has not been able to bear weight since the fall and describes the pain as localized to the R hip with occasional shooting pain. She denies head or neck trauma, loss of consciousness, chest pain, shortness of breath, abdominal pain or any other complaints at bedside. She is in visible distress and crying at bedside. - Past Medical History Cardiovascular: Yes: HTN - Smoking History Smoking history: Former smoker Have you smoked in the past 12 months: No Aproximately how many cigarettes per day: 20 If you are a former smoker, when did you quit?: 25 YRS - Alcohol/Substance Use Hx Alcohol Use: No Home Medications - Allergies Allergies/Adverse Reactions: Allergies Allergy/AdvReac Type Severity Reaction Status Date / Time No Known Allergies Allergy Verified 05/04/18 10:06 - Home Medications Home Medications: Ambulatory Orders Levothyroxine [Synthroid -] 25 mcg PO DAILY 02/06/15 Atenolol [Tenormin -] 50 mg PO DAILY 03/09/17 Lisinopril 5 mg PO DAILY 05/04/18 Simvastatin [Zocor -] 20 mg PO HS 05/04/18 Physical Examination Vital Signs: Vital Signs Temperature 98.2 F 05/04/18 13:00 Pulse Rate 95 H 05/04/18 13:00 Respiratory Rate 16 05/04/18 13:00 Blood Pressure 90/48 L 05/04/18 14:02 O2 Sat by Pulse Oximetry (%) 94 L 05/04/18 13:00 Constitutional: Yes: No Distress HENT: Yes: Atraumatic Neck: Yes: Supple Cardiovascular: Yes: Regular Rate and Rhythm Respiratory: Yes: CTA Bilaterally Gastrointestinal: Yes: Normal Bowel Sounds Neurological: Yes: Alert, Oriented Labs: CBC, BMP 05/04/18 09:54 05/04/18 09:54 Imaging - Results X-ray: Report Reviewed Problem List - Problems (1) Closed right hip fracture Assessment/Plan: ortho consult prn pain meds pt eval cardiology clearance done Code(s): S72.001A - FRACTURE OF UNSP PART OF NECK OF RIGHT FEMUR, INIT Qualifiers: Encounter type: initial encounter Qualified Code(s): S72.001A - Fracture of unspecified part of neck of right femur, initial encounter for closed fracture (2) Hyperlipidemia Assessment/Plan: on meds Code(s): E78.5 - HYPERLIPIDEMIA, UNSPECIFIED Qualifiers: Hyperlipidemia type: pure hypercholesterolemia Qualified Code(s): E78.00 - Pure hypercholesterolemia, unspecified; E78.0 - Pure hypercholesterolemia (3) Hypertension Assessment/Plan: monitpr on meds Code(s): I10 - ESSENTIAL (PRIMARY) HYPERTENSION Qualifiers: Hypertension type: essential hypertension Qualified Code(s): I10 - Essential (primary) hypertension (4) Hypothyroidism Code(s): E03.9 - HYPOTHYROIDISM, UNSPECIFIED Qualifiers: Hypothyroidism type: unspecified Qualified Code(s): E03.9 - Hypothyroidism , unspecified Assessment/Plan Laboratory Tests 05/04/18 05/04/18 05/04/18 09:54 09:54 09:54 WBC 6.9 RBC 4.17 Hgb 13.1 Hct 37.8 MCV 90.6 MCH 31.3 MCHC 34.5 RDW 13.0 Plt Count 188 MPV 8.4 Absolute Neuts (auto) 5.0 Neutrophils % 72.4 Lymphocytes % 21.6 Monocytes % 4.9 Eosinophils % 0.7 Basophils % 0.4 Nucleated RBC % 0 PT with INR 12.30 INR 1.04 PTT (Actin FS) 24.1 L Sodium 141 Potassium 3.7 Chloride 107 Carbon Dioxide 26 Anion Gap 9 BUN 16 Creatinine 0.8 Creat Clearance w eGFR > 60 Random Glucose 119 H Calcium 9.0 Total Bilirubin 0.4 AST 13 L ALT 17 Alkaline Phosphatase 88 Creatine Kinase Total Protein 7.5 Albumin 4.4 Blood Type Antibody Screen 05/04/18 05/04/18 05/04/18 09:54 09:54 11:40 WBC RBC Hgb Hct MCV MCH MCHC RDW Plt Count MPV Absolute Neuts (auto) Neutrophils % Lymphocytes % Monocytes % Eosinophils % Basophils % Nucleated RBC % PT with INR INR PTT (Actin FS) Sodium Potassium Chloride Carbon Dioxide Anion Gap BUN Creatinine Creat Clearance w eGFR Random Glucose Calcium Total Bilirubin AST ALT Alkaline Phosphatase Creatine Kinase 80 Total Protein Albumin Blood Type B POSITIVE B POSITIVE Antibody Screen Negative Active Medications Generic Name Dose Route Start Last Admin Trade Name Freq PRN Reason Stop Dose Admin Atenolol 50 mg 05/05/18 10:00 Tenormin - PO DAILY [facility] Atorvastatin Calcium 10 mg 05/04/18 22:00 Lipitor - PO HS [facility] Levothyroxine Sodium 25 mcg 05/05/18 07:00 Synthroid - PO DAILY@0700 [facility] Lisinopril 5 mg 05/05/18 10:00 Prinivil PO DAILY [facility] Mometasone Furoate 1 puff 05/05/18 10:00 Asmanex 110mcg - IH DAILY [facility] Morphine Sulfate 1 mg 05/04/18 16:26 Morphine Sulfate IVPUSH Q2H PRN PAIN LEVEL 6-10
[2018-05-04] MEDS ORDERED: morphine CARPU-JECT 2 MG/1 ML DISP.SYRIN IVPUSH ONE (14:50)
[2018-05-04] MEDS ORDERED: MORPHINE SULFATE 2 MG/ML VIAL ONE (15:06)
[2018-05-04 16:01] VITALS: BMI 35.2
[2018-05-04] MEDS ORDERED: MORPHINE SULFATE 2 MG/ML VIAL IVPUSH PRN ×2 (16:26→20:54)
[2018-05-04] MEDS ORDERED: BUPIVACAINE HCL/PF 0.5% (5MG/ML) 10 ML VIAL ONE (18:30)
[2018-05-04] MEDS ORDERED: PROPOFOL 20 ML ONE (18:34)
[2018-05-04] MEDS ORDERED: MIDAZOLAM HCL 2 MG/2 ML SINGLE DOSE VIAL ONE ×2 (18:55)
[2018-05-04] MEDS ORDERED: ceFAZolin SODIUM 1 GM VIAL IVPB ONE (19:00)
[2018-05-04] MEDS ORDERED: ceFAZolin SODIUM 1 GM VIAL ONE (19:06)
[2018-05-04] MEDS ORDERED: PHENYLEPHRINE HCL 10 MG/1 ML SINGLE DOSE VIAL ONE (19:07)
[2018-05-04] MEDS ORDERED: TRANEXAMIC ACID 1000 MG/10 ML VIAL ONE (20:05)
--- NOTE | 2018-05-04 20:29 | OP ---
Operative Note - Note: Operative Date: 05/04/18 Pre-Operative Diagnosis: R IT/ST fx Operation: right hip IM nail Implants: ramesh gamma 3, [id number], 100mm proximal lag, 47.5, 55x5 distal locking screws Post-Operative Diagnosis: Same as Pre-op Surgeon: Oscar Mi Air Saw Operator: Carlie Castañeda Anesthesiologist/MARKET REPORTER: Flaco Cohn Anesthesia: Spinal Estimated Blood Loss (mls): 250 Operative Report Dictated: Yes
[2018-05-04] MEDS ORDERED: PROMETHAZINE HCL 25 MG/1 ML VIAL ONE (20:31)
[2018-05-04] MEDS ORDERED: PROMETHAZINE HCL 25 MG/1 ML VIAL IVPUSH PRN (20:32)
[2018-05-04] MEDS ORDERED: ONDANSETRON 4 MG/2 ML VIAL IVPUSH PRN (20:32)
--- NOTE | 2018-05-04 20:58 | CONS ---
DATE OF CONSULTATION: 05/04/2018 PREOPERATIVE DIAGNOSIS: Right hip intertrochanteric fracture with subtrochanteric extension. POSTOPERATIVE DIAGNOSIS: Right hip intertrochanteric fracture with subtrochanteric extension. PROCEDURE: Right hip intramedullary nail. SURGEON: Oscar Anguiano MD CLINICAL FACULTY: CHAS Davis, whose skillful assistance was necessary for the safe and timely performance of this procedure. Ms. Castañeda was able to help provide limb positioning, retraction, assist in fracture reduction, as well as the insertion of orthopedic fixation hardware. ANESTHESIA: Spinal. POSTOPERATIVE CONDITION: Stable. COMPLICATIONS: None. BLOOD LOSS: 250 mL IMPLANTS: Clean TeQ Gamma 3 system 10 x 380 mm nail x 125 degree with 100-mm proximal lag screw and 5 mm x 47.5 as well as 55 mm distal locking screws. INDICATIONS: This is a pleasant 67-year-old female who suffered a trip and fall onto concrete. She was unable to ambulate afterwards. She was found to have a hip fracture in the emergency department at [facility]. Orthopedic consultation was called. She was complaining only of pain in the right hip area. She denies any numbness or tingling. She denies any pain elsewhere. PAST MEDICAL HISTORY: Significant for hypertension. SOCIAL HISTORY: No current alcohol, tobacco, or drugs. ALLERGIES: Denies. MEDICATIONS: Include levothyroxine, atenolol, lisinopril, simvastatin. REVIEW OF SYMPTOMS: Negative for any fever, chills, nausea, vomiting, or night sweats. PHYSICAL EXAMINATION: General: This is a well-appearing female in no acute distress. She is seen lying in a hospital bed. She has regular respirations. She has a normal affect. Vital Signs: She is afebrile, and her vitals are stable. Right Lower Extremities: Demonstrates shortening and external rotation. There is pain with any range of motion. The knee is nontender. The ankle is nontender. Distally, sensation is intact to light touch. DP 2+ pulse. Distal motor 5/5. Radiographs reviewed, demonstrating a displaced intertrochanteric fracture with subtrochanteric extension. LABORATORY DATA: Demonstrated hemoglobin of 13 and hematocrit 37. ASSESSMENT: Right intertrochanteric hip fracture. PLAN: I discussed today's findings with the patient as well as her son. We discussed that there is a displaced hip fracture present. I am recommending operative care. We discussed the option of nonoperative care with prolonged bedrest and multiple potential medical complications. I reviewed operative risks in detail including bleeding, infection, neurovascular injury, need for further surgery, postoperative pain and stiffness, nonunion, malunion, hardware failure, or cutout. We discussed medical risks such as heart attack, stroke, DVT, PE, and . I addressed the use of perioperative antibiotic and DVT prophylaxis. I addressed all the patient's and her son's questions and their concerns. We reviewed the postoperative rehabilitation protocol as well. They voiced understanding and elected to proceed. She will be brought to the operating room today. OSCAR ANGUIANO M.D. [id number]
--- NOTE | 2018-05-04 21:09 | OP ---
DATE OF OPERATION: 05/04/2018 PREOPERATIVE DIAGNOSIS: Right intratrochanteric/subtrochanteric fracture. POSTOPERATIVE DIAGNOSIS: Right intratrochanteric/subtrochanteric fracture. PROCEDURE: Right hip intramedullary nail. SURGEON: Oscar Mi M.D. PHLEBOTOMY SPECIALIST: Trevon Davis, whose skillful assistance was necessary for the safe and timely performance of this procedure. Ms. Castañeda was able to provide positioning, retraction, as well as assistance in fracture reduction as well as the insertion of orthopedic hardware. ANESTHESIA: Spinal. POSTOPERATIVE CONDITION: Stable. COMPLICATIONS: None. IMPLANTS: Taykey gamma 3 system, 10 x 380 x 125 degree nail with 100 mm proximal lag screw and 55 and 47.5 mm distal locking screws. INDICATION: This is a 67-year-old female who suffered a trip and fall. She was found to have a displaced hip fracture. Treatment was recommended with operative care. Operative risks were reviewed in detail including bleeding, infection, neurovascular injury, need for further surgery, postoperative pain and stiffness, nonunion, malunion, hardware failure, cutout . We discussed medical risks such as heart attack, stroke, DVT, PE, and . We discussed the use of postoperative preoperative antibiotics as well as DVT prophylaxis. I addressed all the patient's questions and concerns. She voiced understanding and elected to proceed. DESCRIPTION OF PROCEDURE: Patient was brought to the operating room where spinal anesthetic was administered. She was then placed on the fracture table, careful to pad all bony prominences. The right lower extremity was then placed in the position of adduction, traction, and internal rotation with the patella facing straight up towards the ceiling. The preoperative fluoroscopy was used to establish that the reduction was satisfactory. The patient was then prepped and draped in the usual sterile fashion. A perioperative dose of antibiotics was given, and the usual timeout procedure was performed. The incision was now planned out just proximal to the greater trochanter; this was carried down through skin and subcutaneous tissue. An awl was then placed onto the tip of the greater trochanter, advanced in the femoral canal. The guidewire was now advanced down the center of the femoral canal down to the distal epiphyseal scar, and guidewire placement was verified fluoroscopically in 2 planes. The guidewire was now measured, and a 380-mm nail was chosen. The guidewire was now overreamed, starting with a size 9 and going up to size 11.5 progressively. The nail was then inserted over the guidewire. Nail placement was confirmed fluoroscopically. The trocar was now inserted through the jig of the nail, and a small incision was made laterally on the femur . Trocar was then inserted down to the level of the lateral femoral cortex. Guidewire was now drilled through the center of the femoral neck into the center of the femoral head. Guidewire placement was confirmed fluoroscopically in 2 planes. Guidewire was measured and a 100-mm proximal lag screw was chosen. The guidewire was then overreamed, and the screw was inserted. Screw placement was verified fluoroscopically in 2 planes. The set screw was now advanced and backed off 1/4 turn to allow for compression. The jig was now removed. Fluoroscopy was once again used to confirm fracture reduction and hardware placement of both, which were satisfactory. Attention was now turned distally. Perfects circles technique was used to identify the 2 distal locking holes. Incisions were made over both holes. Bone spreading was carried down to the level of the cortex. Both holes were then drilled and filled with screws of appropriate length. At this point, the entire construct was examined visually and fluoroscopically. Both fracture reduction and hardware placement were satisfactory. The wounds were then copiously irrigated. Subcutaneous tissue was approximated using 2-0 Vicryl. The skin was closed using 3-0 nylon. Sterile dressing was placed. The patient was transferred to recovery room in stable condition. Katharine [id number]
[2018-05-04] MEDS ORDERED: ONDANSETRON 4 MG/2 ML VIAL ONE (21:18)
[2018-05-04] MEDS: LACTATED RINGERS SOLUTION 1,000 ML IV SCH (21:50)
[2018-05-04] MEDS: DOCUSATE SODIUM 100 MG CAPSULE (FP) PO SCH (21:51)
[2018-05-04] MEDS: ATORVASTATIN CA 10 MG TABLET (FP) PO SCH (21:52)
[2018-05-04] MEDS: ACETAMINOPHEN 325 MG TABLET (FP) PO PRN (21:52)
[2018-05-04] MEDS: oxyCODONE HCL 5 MG TABLET PO PRN (21:53)
[2018-05-04] MEDS: CALCIUM 500MG/VIT-D 200 UNITS COMBO TABLET (FP) PO SCH (21:53)
[2018-05-04] MEDS ORDERED: ATORVASTATIN CA 10 MG TABLET (FP) PO SCH (22:00)
[2018-05-05] MEDS ORDERED: CEFAZOLIN 1 GM/D5W 1 GM/50 ML BAG IVPB SCH (02:00)
[2018-05-05] MEDS: oxyCODONE HCL 5 MG TABLET PO PRN ×2 (02:41→10:26)
[2018-05-05] MEDS: ACETAMINOPHEN 325 MG TABLET (FP) PO PRN ×2 (02:42→10:28)
[2018-05-05] MEDS: DOCUSATE SODIUM 100 MG CAPSULE (FP) PO SCH ×3 (06:10→22:30)
[2018-05-05] MEDS: LEVOTHYROXINE NA 25 MCG TABLET (FP) PO SCH (06:11)
[2018-05-05] MEDS ORDERED: LEVOTHYROXINE NA 25 MCG TABLET (FP) PO SCH (07:00)
[2018-05-05 07:49] LABS: BASO % 0.2 % (0-2.0); HEMATOCRIT 28.1 % (32.4-45.2); HEMOGLOBIN 9.9 GM/dL (10.7-15.3); LYMPH % 16.9 % (8-40); MCH 31.7 pg (25.7-33.7); MCHC 35.1 g/dl (32.0-36.0); MEAN CELL VOLUME 90.2 fl (80-96); MEAN PLT VOLUME 8.5 fl (7.5-11.1); MONO % 8.4 % (3.8-10.2); NEUT % 74.5 % (42.8-82.8); PLATELET COUNT 193 K/MM3 (134-434); RBC 3.11 M/mm3 (3.60-5.2); RDW 12.7 % (11.6-15.6); WHITE BLOOD COUNT 6.7 K/mm3 (4.0-10.0)
[2018-05-05 08:17] LABS: ALBUMIN 3.5 g/dl (3.4-5.0); ALK PHOS 61 U/L (45-117); ANION GAP 7 MMOL/L (8-16); BILIRUBIN,TOTAL 0.6 mg/dL (0.2-1); BLOOD UREA NITROGEN 10 mg/dL (7-18); CHLORIDE 104 mmol/L (98-107); CO2 27 mmol/L (21-32); CREATININE 0.6 mg/dL (0.55-1.3); GLUCOSE,RANDOM 118 mg/dL (74-106); SGOT/AST 14 U/L (15-37); SGPT/ALT 16 U/L (13-61); SODIUM 138 mmol/L (136-145); TOT PROT 6.2 g/dl (6.4-8.2)
--- NOTE | 2018-05-05 08:58 | PN ---
Progress Note (short form) - Note Progress Note: Anesthesia postop note 67 y/o F s/p spinal anesthesia for right hip gamma nail. POD#1, vss, aaox3, some pain, sensorymotor intact distally. No anesthesia complications.
[2018-05-05] MEDS ORDERED: MOMETASONE FUROATE 110 MCG/IH INHALER IH SCH (10:00)
[2018-05-05] MEDS ORDERED: ATENOLOL 50 MG TABLET (FP) PO SCH (10:00)
[2018-05-05] MEDS ORDERED: LISINOPRIL 5 MG TABLET (FP) PO SCH (10:00)
[2018-05-05] MEDS: RANITIDINE HCL 150 MG TABLET (FP) PO SCH (10:26)
[2018-05-05] MEDS: ENOXAPARIN NA (PORCINE) 40 MG/0.4 ML DISP.SYRIN SQ SCH (10:26)
[2018-05-05] MEDS: LISINOPRIL 5 MG TABLET (FP) PO SCH (10:28)
[2018-05-05] MEDS: MOMETASONE FUROATE 110 MCG/IH INHALER IH SCH ×2 (10:28→11:53)
[2018-05-05] MEDS: CELECOXIB 200 MG CAPSULE PO SCH (10:29)
[2018-05-05] MEDS: CALCIUM 500MG/VIT-D 200 UNITS COMBO TABLET (FP) PO SCH ×2 (10:29→22:30)
[2018-05-05] MEDS: ATENOLOL 50 MG TABLET (FP) PO SCH (10:29)
[2018-05-05] MEDS ORDERED: PT OWN MED DRAWER 7, Y5N ONE (10:36)
[2018-05-05] MEDS ORDERED: CEFAZOLIN 1 GM in DEXTROSE 5%-WATER - 50 ML IVPB SCH (10:42)
--- NOTE | 2018-05-05 11:04 | PN ---
Progress Note, Physician History of Present Illness: She feels well. was seen by physical therapy. Was able to stand. Was in a lot of pain but better now that she is resting in bed. - Current Medication List Current Medications: Active Medications Acetaminophen (Tylenol -) 650 mg PO Q6H PRN PRN Reason: PAIN LEVEL 1-5 Last Admin: 05/05/18 10:28 Dose: 650 mg Atenolol (Tenormin -) 50 mg PO DAILY [facility] Last Admin: 05/05/18 10:29 Dose: 50 mg Atorvastatin Calcium (Lipitor -) 10 mg PO HS [facility] Last Admin: 05/04/18 21:52 Dose: 10 mg Calcium Carbonate/Cholecalciferol (Os-Kobe 500+D -) 1 tab PO BID [facility] Last Admin: 05/05/18 10:29 Dose: 1 tab Celecoxib (Celebrex -) 200 mg PO DAILY [facility] Last Admin: 05/05/18 10:29 Dose: 200 mg Docusate Sodium (Colace -) 100 mg PO TID [facility] Last Admin: 05/05/18 06:10 Dose: 100 mg Enoxaparin Sodium (Lovenox -) 40 mg SQ DAILY [facility] Last Admin: 05/05/18 10:26 Dose: 40 mg Lactated Ringer's (Lactated Ringers Solution) 1,000 mls @ 75 mls/hr IV ASDIR [facility] Last Admin: 05/04/18 21:50 Dose: 75 mls/hr Cefazolin Sodium (Ancef 1 Gm Premixed Ivpb -) 1 gm in 50 mls @ 100 mls/hr IVPB Q8H-IV [facility] Stop: 05/06/18 02:18 Levothyroxine Sodium (Synthroid -) 25 mcg PO DAILY@0700 [facility] Last Admin: 05/05/18 06:11 Dose: 25 mcg Lisinopril (Prinivil) 5 mg PO DAILY [facility] Last Admin: 05/05/18 10:28 Dose: 5 mg Mometasone Furoate (Asmanex 110mcg -) 1 puff IH DAILY [facility] Last Admin: 05/05/18 10:28 Dose: 1 puff Morphine Sulfate (Morphine Sulfate) 1 mg IVPUSH Q2H PRN PRN Reason: PAIN LEVEL 6-10 Last Admin: 05/05/18 06:11 Dose: 1 mg Oxycodone HCl (Roxicodone -) 10 mg PO Q4H PRN PRN Reason: PAIN LEVEL 6-10 Last Admin: 05/05/18 10:26 Dose: 10 mg Ranitidine HCl (Zantac -) 150 mg PO DAILY [facility] Last Admin: 05/05/18 10:26 Dose: 150 mg - Objective Vital Signs: Vital Signs Temperature 98.7 F 05/05/18 05:55 Pulse Rate 97 H 05/05/18 05:55 Respiratory Rate 20 05/05/18 05:55 Blood Pressure 158/73 05/05/18 05:55 O2 Sat by Pulse Oximetry (%) 100 05/04/18 21:35 Constitutional: Yes: Well Nourished, No Distress, Calm Wound/Incision: Yes: Other (Dressing CDI, No sign of infection. Compartments soft, NT. Calf soft, NT. NVID.) Labs: CBC, BMP 05/05/18 06:45 05/05/18 06:45 INR, PTT INR 1.04 (0.83-1.09) 05/04/18 09:54 Assessment/Plan POD #1 s/p left hip IT nail -Pain control -DVT prophylaxis -PT WBAT -Discharge planning
--- NOTE | 2018-05-05 18:10 | PN ---
Progress Note, Physician History of Present Illness: comfortable - Current Medication List Current Medications: Active Medications Acetaminophen (Tylenol -) 650 mg PO Q6H PRN PRN Reason: PAIN LEVEL 1-5 Last Admin: 05/05/18 10:28 Dose: 650 mg Atenolol (Tenormin -) 50 mg PO DAILY [facility] Last Admin: 05/05/18 10:29 Dose: 50 mg Atorvastatin Calcium (Lipitor -) 10 mg PO HS [facility] Last Admin: 05/04/18 21:52 Dose: 10 mg Calcium Carbonate/Cholecalciferol (Os-Kobe 500+D -) 1 tab PO BID [facility] Last Admin: 05/05/18 10:29 Dose: 1 tab Celecoxib (Celebrex -) 200 mg PO DAILY [facility] Last Admin: 05/05/18 10:29 Dose: 200 mg Docusate Sodium (Colace -) 100 mg PO TID [facility] Last Admin: 05/05/18 14:38 Dose: 100 mg Enoxaparin Sodium (Lovenox -) 40 mg SQ DAILY [facility] Last Admin: 05/05/18 10:26 Dose: 40 mg Lactated Ringer's (Lactated Ringers Solution) 1,000 mls @ 75 mls/hr IV ASDIR [facility] Last Admin: 05/04/18 21:50 Dose: 75 mls/hr Cefazolin Sodium (Ancef 1 Gm Premixed Ivpb -) 1 gm in 50 mls @ 100 mls/hr IVPB Q8H-IV [facility] Stop: 05/06/18 02:18 Levothyroxine Sodium (Synthroid -) 25 mcg PO DAILY@0700 [facility] Last Admin: 05/05/18 06:11 Dose: 25 mcg Lisinopril (Prinivil) 5 mg PO DAILY [facility] Last Admin: 05/05/18 10:28 Dose: 5 mg Mometasone Furoate (Asmanex 110mcg -) 1 puff IH DAILY [facility] Last Admin: 05/05/18 11:53 Dose: Not Given Morphine Sulfate (Morphine Sulfate) 1 mg IVPUSH Q2H PRN PRN Reason: PAIN LEVEL 6-10 Last Admin: 05/05/18 06:11 Dose: 1 mg Oxycodone HCl (Roxicodone -) 10 mg PO Q4H PRN PRN Reason: PAIN LEVEL 6-10 Last Admin: 05/05/18 10:26 Dose: 10 mg Ranitidine HCl (Zantac -) 150 mg PO DAILY [facility] Last Admin: 05/05/18 10:26 Dose: 150 mg - Objective Vital Signs: Vital Signs Temperature 98.7 F 05/05/18 05:55 Pulse Rate 97 H 05/05/18 05:55 Respiratory Rate 20 05/05/18 09:00 Blood Pressure 158/73 05/05/18 05:55 O2 Sat by Pulse Oximetry (%) 100 05/05/18 09:00 Constitutional: Yes: No Distress HENT: Yes: Atraumatic Neck: Yes: Supple Cardiovascular: Yes: Regular Rate and Rhythm Respiratory: Yes: CTA Bilaterally Gastrointestinal: Yes: Normal Bowel Sounds Extremities: Yes: WNL Peripheral Pulses WNL: Yes Neurological: Yes: Alert, Oriented Labs: CBC, BMP 05/05/18 06:45 05/05/18 06:45 INR, PTT INR 1.04 (0.83-1.09) 05/04/18 09:54 Problem List - Problems (1) Closed right hip fracture Assessment/Plan: s/p surgery prn pain meds dvt ppx Code(s): S72.001A - FRACTURE OF UNSP PART OF NECK OF RIGHT FEMUR, INIT Qualifiers: Encounter type: initial encounter Qualified Code(s): S72.001A - Fracture of unspecified part of neck of right femur, initial encounter for closed fracture (2) Hyperlipidemia Assessment/Plan: on meds Code(s): E78.5 - HYPERLIPIDEMIA, UNSPECIFIED Qualifiers: Hyperlipidemia type: pure hypercholesterolemia Qualified Code(s): E78.00 - Pure hypercholesterolemia, unspecified; E78.0 - Pure hypercholesterolemia (3) Hypertension Assessment/Plan: monitpr on meds Code(s): I10 - ESSENTIAL (PRIMARY) HYPERTENSION Qualifiers: Hypertension type: essential hypertension Qualified Code(s): I10 - Essential (primary) hypertension (4) Hypothyroidism Assessment/Plan: onmeds stable Code(s): E03.9 - HYPOTHYROIDISM, UNSPECIFIED Qualifiers: Hypothyroidism type: unspecified Qualified Code(s): E03.9 - Hypothyroidism , unspecified
[2018-05-05] MEDS: CEFAZOLIN 1 GM/D5W 1 GM/50 ML BAG IVPB SCH (20:02)
[2018-05-05] MEDS: LACTATED RINGERS SOLUTION 1,000 ML IV SCH (22:30)
[2018-05-05] MEDS: ATORVASTATIN CA 10 MG TABLET (FP) PO SCH (22:30)
[2018-05-06] MEDS: ACETAMINOPHEN 325 MG TABLET (FP) PO PRN ×4 (00:30→22:14)
[2018-05-06] MEDS: oxyCODONE HCL 5 MG TABLET PO PRN ×2 (00:30→06:50)
[2018-05-06] MEDS: CEFAZOLIN 1 GM/D5W 1 GM/50 ML BAG IVPB SCH (02:47)
[2018-05-06] MEDS: DOCUSATE SODIUM 100 MG CAPSULE (FP) PO SCH ×3 (06:28→20:12)
[2018-05-06] MEDS: LEVOTHYROXINE NA 25 MCG TABLET (FP) PO SCH (06:28)
--- NOTE | 2018-05-06 09:55 | PN ---
Progress Note, Physician History of Present Illness: she is feeling better today. No PT yet. She is able to move in the bed with minimal discomfort. - Current Medication List Current Medications: Active Medications Acetaminophen (Tylenol -) 650 mg PO Q6H PRN PRN Reason: PAIN LEVEL 1-5 Last Admin: 05/06/18 06:50 Dose: 650 mg Atenolol (Tenormin -) 50 mg PO DAILY [facility] Last Admin: 05/05/18 10:29 Dose: 50 mg Atorvastatin Calcium (Lipitor -) 10 mg PO HS [facility] Last Admin: 05/05/18 22:30 Dose: 10 mg Calcium Carbonate/Cholecalciferol (Os-Kobe 500+D -) 1 tab PO BID [facility] Last Admin: 05/05/18 22:30 Dose: 1 tab Celecoxib (Celebrex -) 200 mg PO DAILY [facility] Last Admin: 05/05/18 10:29 Dose: 200 mg Docusate Sodium (Colace -) 100 mg PO TID [facility] Last Admin: 05/06/18 06:28 Dose: 100 mg Enoxaparin Sodium (Lovenox -) 40 mg SQ DAILY [facility] Last Admin: 05/05/18 10:26 Dose: 40 mg Lactated Ringer's (Lactated Ringers Solution) 1,000 mls @ 75 mls/hr IV ASDIR [facility] Last Admin: 05/05/18 22:30 Dose: Not Given Levothyroxine Sodium (Synthroid -) 25 mcg PO DAILY@0700 [facility] Last Admin: 05/06/18 06:28 Dose: 25 mcg Lisinopril (Prinivil) 5 mg PO DAILY [facility] Last Admin: 05/05/18 10:28 Dose: 5 mg Mometasone Furoate (Asmanex 110mcg -) 1 puff IH DAILY [facility] Last Admin: 05/05/18 11:53 Dose: Not Given Morphine Sulfate (Morphine Sulfate) 1 mg IVPUSH Q2H PRN PRN Reason: PAIN LEVEL 6-10 Last Admin: 05/05/18 06:11 Dose: 1 mg Oxycodone HCl (Roxicodone -) 10 mg PO Q4H PRN PRN Reason: PAIN LEVEL 6-10 Last Admin: 05/06/18 06:50 Dose: 10 mg Ranitidine HCl (Zantac -) 150 mg PO DAILY [facility] Last Admin: 05/05/18 10:26 Dose: 150 mg - Objective Vital Signs: Vital Signs Temperature 98.0 F 05/06/18 09:06 Pulse Rate 75 05/06/18 09:06 Respiratory Rate 20 05/06/18 09:06 Blood Pressure 99/42 L 05/06/18 09:06 O2 Sat by Pulse Oximetry (%) 100 05/05/18 21:00 Constitutional: Yes: Well Nourished, No Distress, Calm Musculoskeletal: Yes: Other (Dressing CDI, No sign of infection. Smooth ROM of hip. Compartments soft. Calf soft, nontender. NVID.) Labs: CBC, BMP 05/05/18 06:45 INR, PTT INR 1.04 (0.83-1.09) 05/04/18 09:54 Assessment/Plan POD #2 s/p right hip ORIF -PT WBAT -Pain control -DVT Prophylaxis -Discharge planning
[2018-05-06 10:03] LABS: HEMATOCRIT 24.4 % (32.4-45.2); HEMOGLOBIN 8.4 GM/dL (10.7-15.3); MCH 31.7 pg (25.7-33.7); MCHC 34.6 g/dl (32.0-36.0); MEAN CELL VOLUME 91.9 fl (80-96); MEAN PLT VOLUME 8.6 fl (7.5-11.1); PLATELET COUNT 158 K/MM3 (134-434); RBC 2.66 M/mm3 (3.60-5.2); RDW 13.1 % (11.6-15.6); WHITE BLOOD COUNT 6.4 K/mm3 (4.0-10.0)
[2018-05-06] MEDS: RANITIDINE HCL 150 MG TABLET (FP) PO SCH (10:11)
[2018-05-06] MEDS: CALCIUM 500MG/VIT-D 200 UNITS COMBO TABLET (FP) PO SCH ×2 (10:11→22:12)
[2018-05-06] MEDS: MOMETASONE FUROATE 110 MCG/IH INHALER IH SCH (10:13)
[2018-05-06] MEDS: ATENOLOL 50 MG TABLET (FP) PO SCH (10:13)
[2018-05-06] MEDS: CELECOXIB 200 MG CAPSULE PO SCH ×2 (10:13→10:19)
[2018-05-06] MEDS: LISINOPRIL 5 MG TABLET (FP) PO SCH (10:13)
[2018-05-06] MEDS: ENOXAPARIN NA (PORCINE) 40 MG/0.4 ML DISP.SYRIN SQ SCH (10:15)
[2018-05-06] MEDS ORDERED: PT OWN MED DRAWER 7, Y5N ONE (12:15)
--- NOTE | 2018-05-06 14:32 | PN ---
Progress Note, Physician History of Present Illness: comfortable - Current Medication List Current Medications: Active Medications Acetaminophen (Tylenol -) 650 mg PO Q6H PRN PRN Reason: PAIN LEVEL 1-5 Last Admin: 05/06/18 12:17 Dose: 650 mg Atenolol (Tenormin -) 50 mg PO DAILY [facility] Last Admin: 05/06/18 10:13 Dose: Not Given Atorvastatin Calcium (Lipitor -) 10 mg PO HS [facility] Last Admin: 05/05/18 22:30 Dose: 10 mg Calcium Carbonate/Cholecalciferol (Os-Kobe 500+D -) 1 tab PO BID [facility] Last Admin: 05/06/18 10:11 Dose: 1 tab Celecoxib (Celebrex -) 200 mg PO DAILY [facility] Last Admin: 05/06/18 10:19 Dose: 200 mg Docusate Sodium (Colace -) 100 mg PO TID [facility] Last Admin: 05/06/18 14:11 Dose: Not Given Enoxaparin Sodium (Lovenox -) 40 mg SQ DAILY [facility] Last Admin: 05/06/18 10:15 Dose: 40 mg Lactated Ringer's (Lactated Ringers Solution) 1,000 mls @ 75 mls/hr IV ASDIR [facility] Last Admin: 05/05/18 22:30 Dose: Not Given Levothyroxine Sodium (Synthroid -) 25 mcg PO DAILY@0700 [facility] Last Admin: 05/06/18 06:28 Dose: 25 mcg Lisinopril (Prinivil) 5 mg PO DAILY [facility] Last Admin: 05/06/18 10:13 Dose: Not Given Mometasone Furoate (Asmanex 110mcg -) 1 puff IH DAILY [facility] Last Admin: 05/06/18 10:13 Dose: Not Given Morphine Sulfate (Morphine Sulfate) 1 mg IVPUSH Q2H PRN PRN Reason: PAIN LEVEL 6-10 Last Admin: 05/05/18 06:11 Dose: 1 mg Oxycodone HCl (Roxicodone -) 10 mg PO Q4H PRN PRN Reason: PAIN LEVEL 6-10 Last Admin: 05/06/18 06:50 Dose: 10 mg Ranitidine HCl (Zantac -) 150 mg PO DAILY [facility] Last Admin: 05/06/18 10:11 Dose: 150 mg - Objective Vital Signs: Vital Signs Temperature 97.7 F 05/06/18 13:59 Pulse Rate 78 05/06/18 13:59 Respiratory Rate 20 05/06/18 09:06 Blood Pressure 87/48 L 05/06/18 13:59 O2 Sat by Pulse Oximetry (%) 100 05/06/18 09:00 Constitutional: Yes: No Distress HENT: Yes: Atraumatic Neck: Yes: Supple Cardiovascular: Yes: Regular Rate and Rhythm Respiratory: Yes: CTA Bilaterally Gastrointestinal: Yes: Normal Bowel Sounds Extremities: Yes: WNL Edema: RLE: Trace Peripheral Pulses WNL: Yes Neurological: Yes: Alert, Oriented Labs: CBC, BMP 05/06/18 09:25 05/05/18 06:45 INR, PTT INR 1.04 (0.83-1.09) 05/04/18 09:54 Problem List - Problems (1) Closed right hip fracture Assessment/Plan: s/p surgery prn pain meds dvt ppx Code(s): S72.001A - FRACTURE OF UNSP PART OF NECK OF RIGHT FEMUR, INIT Qualifiers: Encounter type: initial encounter Qualified Code(s): S72.001A - Fracture of unspecified part of neck of right femur, initial encounter for closed fracture (2) Hyperlipidemia Assessment/Plan: on meds Code(s): E78.5 - HYPERLIPIDEMIA, UNSPECIFIED Qualifiers: Hyperlipidemia type: pure hypercholesterolemia Qualified Code(s): E78.00 - Pure hypercholesterolemia, unspecified; E78.0 - Pure hypercholesterolemia (3) Hypertension Assessment/Plan: monitpr on meds Code(s): I10 - ESSENTIAL (PRIMARY) HYPERTENSION Qualifiers: Hypertension type: essential hypertension Qualified Code(s): I10 - Essential (primary) hypertension (4) Hypothyroidism Assessment/Plan: onmeds stable Code(s): E03.9 - HYPOTHYROIDISM, UNSPECIFIED Qualifiers: Hypothyroidism type: unspecified Qualified Code(s): E03.9 - Hypothyroidism , unspecified (5) Anemia Assessment/Plan: post surgical fu cbc transfuse if below 8 Code(s): D64.9 - ANEMIA, UNSPECIFIED
[2018-05-06] MEDS: ATORVASTATIN CA 10 MG TABLET (FP) PO SCH (22:12)
[2018-05-07] MEDS: DOCUSATE SODIUM 100 MG CAPSULE (FP) PO SCH ×3 (06:21→22:46)
[2018-05-07] MEDS: LEVOTHYROXINE NA 25 MCG TABLET (FP) PO SCH (06:21)
[2018-05-07] MEDS: ACETAMINOPHEN 325 MG TABLET (FP) PO PRN ×3 (06:24→22:48)
[2018-05-07] MEDS: oxyCODONE HCL 5 MG TABLET PO PRN ×2 (06:25→23:19)
[2018-05-07 08:19] LABS: BASO % 0.7 % (0-2.0); EOS % 1.4 % (0-4.5); HEMATOCRIT 29.3 % (32.4-45.2); HEMOGLOBIN 10.4 GM/dL (10.7-15.3); LYMPH % 25.7 % (8-40); MCH 31.9 pg (25.7-33.7); MCHC 35.6 g/dl (32.0-36.0); MEAN CELL VOLUME 89.5 fl (80-96); MEAN PLT VOLUME 8.4 fl (7.5-11.1); NEUT % 65.2 % (42.8-82.8); PLATELET COUNT 184 K/MM3 (134-434); RBC 3.27 M/mm3 (3.60-5.2)
[2018-05-07] MEDS: ENOXAPARIN NA (PORCINE) 40 MG/0.4 ML DISP.SYRIN SQ SCH (10:09)
[2018-05-07] MEDS: RANITIDINE HCL 150 MG TABLET (FP) PO SCH (10:09)
[2018-05-07] MEDS: CALCIUM 500MG/VIT-D 200 UNITS COMBO TABLET (FP) PO SCH ×2 (10:09→22:46)
[2018-05-07] MEDS: CELECOXIB 200 MG CAPSULE PO SCH (10:11)
[2018-05-07] MEDS: LISINOPRIL 5 MG TABLET (FP) PO SCH (10:11)
[2018-05-07] MEDS: MOMETASONE FUROATE 110 MCG/IH INHALER IH SCH (10:11)
[2018-05-07] MEDS: ATENOLOL 50 MG TABLET (FP) PO SCH (10:11)
--- NOTE | 2018-05-07 11:22 | PN ---
Progress Note, Physician History of Present Illness: Tolerating PT, pain adequately controlled. Transfused 1 U pRBC, Hgb stable. - Current Medication List Current Medications: Active Medications Acetaminophen (Tylenol -) 650 mg PO Q6H PRN PRN Reason: PAIN LEVEL 1-5 Last Admin: 05/07/18 06:24 Dose: 650 mg Atenolol (Tenormin -) 50 mg PO DAILY [facility] Last Admin: 05/07/18 10:11 Dose: Not Given Atorvastatin Calcium (Lipitor -) 10 mg PO HS [facility] Last Admin: 05/06/18 22:12 Dose: 10 mg Calcium Carbonate/Cholecalciferol (Os-Kobe 500+D -) 1 tab PO BID [facility] Last Admin: 05/07/18 10:09 Dose: 1 tab Celecoxib (Celebrex -) 200 mg PO DAILY [facility] Last Admin: 05/07/18 10:11 Dose: Not Given Docusate Sodium (Colace -) 100 mg PO TID [facility] Last Admin: 05/07/18 06:21 Dose: Not Given Enoxaparin Sodium (Lovenox -) 40 mg SQ DAILY [facility] Last Admin: 05/07/18 10:09 Dose: 40 mg Lactated Ringer's (Lactated Ringers Solution) 1,000 mls @ 75 mls/hr IV ASDIR [facility] Last Admin: 05/05/18 22:30 Dose: Not Given Levothyroxine Sodium (Synthroid -) 25 mcg PO DAILY@0700 [facility] Last Admin: 05/07/18 06:21 Dose: 25 mcg Lisinopril (Prinivil) 5 mg PO DAILY [facility] Last Admin: 05/07/18 10:11 Dose: Not Given Mometasone Furoate (Asmanex 110mcg -) 1 puff IH DAILY [facility] Last Admin: 05/07/18 10:11 Dose: Not Given Morphine Sulfate (Morphine Sulfate) 1 mg IVPUSH Q2H PRN PRN Reason: PAIN LEVEL 6-10 Last Admin: 05/05/18 06:11 Dose: 1 mg Oxycodone HCl (Roxicodone -) 10 mg PO Q4H PRN PRN Reason: PAIN LEVEL 6-10 Last Admin: 05/07/18 06:25 Dose: 10 mg Ranitidine HCl (Zantac -) 150 mg PO DAILY [facility] Last Admin: 05/07/18 10:09 Dose: 150 mg - Objective Vital Signs: Vital Signs Temperature 97.7 F 05/07/18 09:16 Pulse Rate 89 05/07/18 09:16 Respiratory Rate 20 05/07/18 09:16 Blood Pressure 102/67 05/07/18 09:16 O2 Sat by Pulse Oximetry (%) 98 05/06/18 21:00 Constitutional: Yes: No Distress, Calm Neck: Yes: Supple Cardiovascular: Yes: Regular Rate and Rhythm Respiratory: Yes: Regular, CTA Bilaterally Gastrointestinal: Yes: Normal Bowel Sounds, Soft Edema: No Labs: CBC, BMP 05/07/18 07:35 05/05/18 06:45 INR, PTT INR 1.04 (0.83-1.09) 05/04/18 09:54 Problem List - Problems (1) Hypertension Code(s): I10 - ESSENTIAL (PRIMARY) HYPERTENSION Qualifiers: Hypertension type: essential hypertension Qualified Code(s): I10 - Essential (primary) hypertension (2) Hyperlipidemia Code(s): E78.5 - HYPERLIPIDEMIA, UNSPECIFIED Qualifiers: Hyperlipidemia type: pure hypercholesterolemia Qualified Code(s): E78.00 - Pure hypercholesterolemia, unspecified; E78.0 - Pure hypercholesterolemia (3) Hypothyroidism Code(s): E03.9 - HYPOTHYROIDISM, UNSPECIFIED Qualifiers: Hypothyroidism type: unspecified Qualified Code(s): E03.9 - Hypothyroidism , unspecified (4) Closed right hip fracture Code(s): S72.001A - FRACTURE OF UNSP PART OF NECK OF RIGHT FEMUR, INIT Qualifiers: Encounter type: initial encounter Qualified Code(s): S72.001A - Fracture of unspecified part of neck of right femur, initial encounter for closed fracture (5) Vertigo Code(s): R42 - DIZZINESS AND GIDDINESS Assessment/Plan 1. POD#3 1 s/p left hip IT nail 2. s/p mechanical fall and right IT fracture 3. HTN 4. Hypothyroidism 5. Hyperlipidemia 6. Post-op anemia post 1 U pRBC P: 1. Continue Atenolol 50 qd, Lipitor 10 qhs, lisinopril 5 qd 2. Analgesia as needed, DVT prophylaxis 3. PT WBAT -> SNF 4. Monitor Hgb post-transfusion
--- NOTE | 2018-05-07 11:34 | DS ---
Physical Examination Vital Signs: Vital Signs Temperature 97.7 F 05/07/18 09:16 Pulse Rate 89 05/07/18 09:16 Respiratory Rate 20 05/07/18 09:16 Blood Pressure 102/67 05/07/18 09:16 O2 Sat by Pulse Oximetry (%) 98 05/06/18 21:00 Labs: CBC, BMP 05/07/18 07:35 05/05/18 06:45 Discharge Summary Reason For Visit: CLOSED FRACTURE OF RIGHT HIP Current Active Problems Anemia (Acute) Closed right hip fracture (Acute) Hyperlipidemia (Acute) Hypertension (Acute) Hypothyroidism (Acute) Condition: Fair - Instructions - Home Medications Comprehensive Discharge Medication List: Ambulatory Orders Levothyroxine [Synthroid -] 25 mcg PO DAILY 02/06/15 Atenolol [Tenormin -] 50 mg PO DAILY 03/09/17 Lisinopril 5 mg PO DAILY 05/04/18 Simvastatin [Zocor -] 20 mg PO HS 05/04/18 dc
--- NOTE | 2018-05-07 11:53 | PN ---
Progress Note (short form) - Note Progress Note: This is a 67 year old woman with a history of HTN s/p R hip ORIF on 05/04. Patient feeling well today. Just finished with PT session prior to my arrival. She notes 8/10 pain last night which has gone down to 5/10 today. She would like to switch to Tylenol as needed for pain as oxycodone is upsetting her stomach. Last Vital Signs Temp Pulse Resp BP Pulse Ox 97.7 F 89 20 102/67 98 05/07/18 09:16 05/07/18 09:16 05/07/18 09:16 05/07/18 09:16 05/06/18 21:00 PE: RLE Dressing C/D/I Calves soft, nontender Neruovascularly intact bilaterally Cap refill intact Abnormal Lab Results 05/04/18 05/07/18 09:54 07:35 RBC 3.27 L Hgb 10.4 L Hct 29.3 L D Crossmatch See Detail A: POD #3 s/p R hip ORIF P: Continue with PT DVT prophylaxis Weight-bearing as tolerated Will be transferred to rehab later today or tomorrow F/u as outpatient after discharge
--- NOTE | 2018-05-07 17:45 | PN ---
Progress Note, Physician History of Present Illness: comfortable - Current Medication List Current Medications: Active Medications Acetaminophen (Tylenol -) 650 mg PO Q6H PRN PRN Reason: PAIN LEVEL 1-5 Last Admin: 05/07/18 14:42 Dose: 650 mg Atenolol (Tenormin -) 50 mg PO DAILY [facility] Last Admin: 05/07/18 10:11 Dose: Not Given Atorvastatin Calcium (Lipitor -) 10 mg PO HS [facility] Last Admin: 05/06/18 22:12 Dose: 10 mg Calcium Carbonate/Cholecalciferol (Os-Kobe 500+D -) 1 tab PO BID [facility] Last Admin: 05/07/18 10:09 Dose: 1 tab Celecoxib (Celebrex -) 200 mg PO DAILY [facility] Last Admin: 05/07/18 10:11 Dose: Not Given Docusate Sodium (Colace -) 100 mg PO TID [facility] Last Admin: 05/07/18 14:43 Dose: 100 mg Enoxaparin Sodium (Lovenox -) 40 mg SQ DAILY [facility] Last Admin: 05/07/18 10:09 Dose: 40 mg Lactated Ringer's (Lactated Ringers Solution) 1,000 mls @ 75 mls/hr IV ASDIR [facility] Last Admin: 05/05/18 22:30 Dose: Not Given Levothyroxine Sodium (Synthroid -) 25 mcg PO DAILY@0700 [facility] Last Admin: 05/07/18 06:21 Dose: 25 mcg Lisinopril (Prinivil) 5 mg PO DAILY [facility] Last Admin: 05/07/18 10:11 Dose: Not Given Mometasone Furoate (Asmanex 110mcg -) 1 puff IH DAILY [facility] Last Admin: 05/07/18 10:11 Dose: Not Given Morphine Sulfate (Morphine Sulfate) 1 mg IVPUSH Q2H PRN PRN Reason: PAIN LEVEL 6-10 Last Admin: 05/05/18 06:11 Dose: 1 mg Oxycodone HCl (Roxicodone -) 10 mg PO Q4H PRN PRN Reason: PAIN LEVEL 6-10 Last Admin: 05/07/18 06:25 Dose: 10 mg Ranitidine HCl (Zantac -) 150 mg PO DAILY [facility] Last Admin: 05/07/18 10:09 Dose: 150 mg - Objective Vital Signs: Vital Signs Temperature 98.0 F 05/07/18 14:52 Pulse Rate 78 05/07/18 14:52 Respiratory Rate 20 05/07/18 09:16 Blood Pressure 111/50 L 05/07/18 14:52 O2 Sat by Pulse Oximetry (%) 98 05/07/18 09:00 HENT: Yes: Atraumatic Neck: Yes: Supple Cardiovascular: Yes: Regular Rate and Rhythm Respiratory: Yes: CTA Bilaterally Gastrointestinal: Yes: Normal Bowel Sounds Extremities: Yes: WNL Edema: No Peripheral Pulses WNL: Yes Neurological: Yes: Alert, Oriented Labs: CBC, BMP 05/07/18 07:35 05/05/18 06:45 INR, PTT INR 1.04 (0.83-1.09) 05/04/18 09:54 Problem List - Problems (1) Closed right hip fracture Assessment/Plan: s/p surgery prn pain meds dvt ppx for rehab Code(s): S72.001A - FRACTURE OF UNSP PART OF NECK OF RIGHT FEMUR, INIT Qualifiers: Encounter type: initial encounter Qualified Code(s): S72.001A - Fracture of unspecified part of neck of right femur, initial encounter for closed fracture (2) Hyperlipidemia Assessment/Plan: on meds Code(s): E78.5 - HYPERLIPIDEMIA, UNSPECIFIED Qualifiers: Hyperlipidemia type: pure hypercholesterolemia Qualified Code(s): E78.00 - Pure hypercholesterolemia, unspecified; E78.0 - Pure hypercholesterolemia (3) Hypertension Assessment/Plan: monitpr on meds Code(s): I10 - ESSENTIAL (PRIMARY) HYPERTENSION Qualifiers: Hypertension type: essential hypertension Qualified Code(s): I10 - Essential (primary) hypertension (4) Hypothyroidism Code(s): E03.9 - HYPOTHYROIDISM, UNSPECIFIED Qualifiers: Hypothyroidism type: unspecified Qualified Code(s): E03.9 - Hypothyroidism , unspecified (5) Anemia Assessment/Plan: post surgical transfuse 1 u prbc fu cbc Code(s): D64.9 - ANEMIA, UNSPECIFIED
[2018-05-07] MEDS: ATORVASTATIN CA 10 MG TABLET (FP) PO SCH (22:47)
[2018-05-08] MEDS: oxyCODONE HCL 5 MG TABLET PO PRN ×3 (04:30→17:17)
[2018-05-08] MEDS: ACETAMINOPHEN 325 MG TABLET (FP) PO PRN ×3 (05:00→17:17)
[2018-05-08] MEDS: LEVOTHYROXINE NA 25 MCG TABLET (FP) PO SCH (06:38)
[2018-05-08] MEDS: DOCUSATE SODIUM 100 MG CAPSULE (FP) PO SCH ×2 (06:38→14:42)
[2018-05-08] MEDS ORDERED: PT OWN MED DRAWER 7, Y5N ONE (09:29)
[2018-05-08] MEDS: ENOXAPARIN NA (PORCINE) 40 MG/0.4 ML DISP.SYRIN SQ SCH (09:33)
[2018-05-08] MEDS: LISINOPRIL 5 MG TABLET (FP) PO SCH (09:33)
[2018-05-08] MEDS: ATENOLOL 50 MG TABLET (FP) PO SCH (09:33)
[2018-05-08] MEDS: RANITIDINE HCL 150 MG TABLET (FP) PO SCH (09:33)
[2018-05-08] MEDS: CALCIUM 500MG/VIT-D 200 UNITS COMBO TABLET (FP) PO SCH (09:33)
[2018-05-08] MEDS: CELECOXIB 200 MG CAPSULE PO SCH (09:33)
[2018-05-08] MEDS: MOMETASONE FUROATE 110 MCG/IH INHALER IH SCH (09:33)
--- NOTE | 2018-05-08 11:32 | PN ---
Progress Note, Physician History of Present Illness: Ambulating, pain adequately controlled. Transfused 1 U pRBC, Hgb stable. - Current Medication List Current Medications: Active Medications Acetaminophen (Tylenol -) 650 mg PO Q6H PRN PRN Reason: PAIN LEVEL 1-5 Last Admin: 05/08/18 10:00 Dose: 650 mg Atenolol (Tenormin -) 50 mg PO DAILY [facility] Last Admin: 05/08/18 09:33 Dose: 50 mg Atorvastatin Calcium (Lipitor -) 10 mg PO HS [facility] Last Admin: 05/07/18 22:47 Dose: 10 mg Calcium Carbonate/Cholecalciferol (Os-Kobe 500+D -) 1 tab PO BID [facility] Last Admin: 05/08/18 09:33 Dose: 1 tab Celecoxib (Celebrex -) 200 mg PO DAILY [facility] Last Admin: 05/08/18 09:33 Dose: Not Given Docusate Sodium (Colace -) 100 mg PO TID [facility] Last Admin: 05/08/18 06:38 Dose: 100 mg Enoxaparin Sodium (Lovenox -) 40 mg SQ DAILY [facility] Last Admin: 05/08/18 09:33 Dose: 40 mg Levothyroxine Sodium (Synthroid -) 25 mcg PO DAILY@0700 [facility] Last Admin: 05/08/18 06:38 Dose: 25 mcg Lisinopril (Prinivil) 5 mg PO DAILY [facility] Last Admin: 05/08/18 09:33 Dose: 5 mg Mometasone Furoate (Asmanex 110mcg -) 1 puff IH DAILY [facility] Last Admin: 05/08/18 09:33 Dose: Not Given Oxycodone HCl (Roxicodone -) 5 mg PO Q4H PRN PRN Reason: PAIN LEVEL 6-10 Last Admin: 05/08/18 09:48 Dose: 5 mg Ranitidine HCl (Zantac -) 150 mg PO DAILY [facility] Last Admin: 05/08/18 09:33 Dose: 150 mg - Objective Vital Signs: Vital Signs Temperature 98.4 F 05/08/18 09:30 Pulse Rate 97 H 05/08/18 09:30 Respiratory Rate 17 05/08/18 09:30 Blood Pressure 159/69 05/08/18 09:30 O2 Sat by Pulse Oximetry (%) 98 05/08/18 09:45 Constitutional: Yes: No Distress, Calm, Thin Neck: Yes: Supple Cardiovascular: Yes: Regular Rate and Rhythm Respiratory: Yes: Regular, Diminished Gastrointestinal: Yes: Normal Bowel Sounds, Soft Edema: No Labs: CBC, BMP 05/07/18 07:35 05/05/18 06:45 INR, PTT INR 1.04 (0.83-1.09) 05/04/18 09:54 Problem List - Problems (1) Hypertension Code(s): I10 - ESSENTIAL (PRIMARY) HYPERTENSION Qualifiers: Hypertension type: essential hypertension Qualified Code(s): I10 - Essential (primary) hypertension (2) Hyperlipidemia Code(s): E78.5 - HYPERLIPIDEMIA, UNSPECIFIED Qualifiers: Hyperlipidemia type: pure hypercholesterolemia Qualified Code(s): E78.00 - Pure hypercholesterolemia, unspecified; E78.0 - Pure hypercholesterolemia (3) Hypothyroidism Code(s): E03.9 - HYPOTHYROIDISM, UNSPECIFIED Qualifiers: Hypothyroidism type: unspecified Qualified Code(s): E03.9 - Hypothyroidism , unspecified (4) Closed right hip fracture Code(s): S72.001A - FRACTURE OF UNSP PART OF NECK OF RIGHT FEMUR, INIT Qualifiers: Encounter type: initial encounter Qualified Code(s): S72.001A - Fracture of unspecified part of neck of right femur, initial encounter for closed fracture (5) Vertigo Code(s): R42 - DIZZINESS AND GIDDINESS Assessment/Plan 1. POD#4 s/p left hip IT nail 2. s/p mechanical fall and right IT fracture 3. HTN 4. Hypothyroidism 5. Hyperlipidemia 6. Post-op anemia post 1 U pRBC P: 1. Continue Atenolol 50 qd, Lipitor 10 qhs, lisinopril 5 qd 2. Analgesia as needed, DVT prophylaxis 3. PT WBAT -> SNF 4. Monitor Hgb post-transfusion
--- NOTE | 2018-05-08 13:11 | PN ---
Progress Note, Physician - Current Medication List Current Medications: Active Medications Acetaminophen (Tylenol -) 650 mg PO Q6H PRN PRN Reason: PAIN LEVEL 1-5 Last Admin: 05/08/18 10:00 Dose: 650 mg Atenolol (Tenormin -) 50 mg PO DAILY [facility] Last Admin: 05/08/18 09:33 Dose: 50 mg Atorvastatin Calcium (Lipitor -) 10 mg PO HS [facility] Last Admin: 05/07/18 22:47 Dose: 10 mg Calcium Carbonate/Cholecalciferol (Os-Kobe 500+D -) 1 tab PO BID [facility] Last Admin: 05/08/18 09:33 Dose: 1 tab Celecoxib (Celebrex -) 200 mg PO DAILY [facility] Last Admin: 05/08/18 09:33 Dose: Not Given Docusate Sodium (Colace -) 100 mg PO TID [facility] Last Admin: 05/08/18 06:38 Dose: 100 mg Enoxaparin Sodium (Lovenox -) 40 mg SQ DAILY [facility] Last Admin: 05/08/18 09:33 Dose: 40 mg Levothyroxine Sodium (Synthroid -) 25 mcg PO DAILY@0700 [facility] Last Admin: 05/08/18 06:38 Dose: 25 mcg Lisinopril (Prinivil) 5 mg PO DAILY [facility] Last Admin: 05/08/18 09:33 Dose: 5 mg Mometasone Furoate (Asmanex 110mcg -) 1 puff IH DAILY [facility] Last Admin: 05/08/18 09:33 Dose: Not Given Oxycodone HCl (Roxicodone -) 5 mg PO Q4H PRN PRN Reason: PAIN LEVEL 6-10 Last Admin: 05/08/18 09:48 Dose: 5 mg Ranitidine HCl (Zantac -) 150 mg PO DAILY [facility] Last Admin: 05/08/18 09:33 Dose: 150 mg - Objective Vital Signs: Vital Signs Temperature 98.4 F 05/08/18 09:30 Pulse Rate 97 H 05/08/18 09:30 Respiratory Rate 17 05/08/18 09:30 Blood Pressure 159/69 05/08/18 09:30 O2 Sat by Pulse Oximetry (%) 98 05/08/18 09:45 Labs: CBC, BMP 05/07/18 07:35 05/05/18 06:45 INR, PTT INR 1.04 (0.83-1.09) 05/04/18 09:54 Problem List - Problems (1) Closed right hip fracture Code(s): S72.001A - FRACTURE OF UNSP PART OF NECK OF RIGHT FEMUR, INIT Qualifiers: Encounter type: initial encounter Qualified Code(s): S72.001A - Fracture of unspecified part of neck of right femur, initial encounter for closed fracture (2) Hyperlipidemia Code(s): E78.5 - HYPERLIPIDEMIA, UNSPECIFIED Qualifiers: Hyperlipidemia type: pure hypercholesterolemia Qualified Code(s): E78.00 - Pure hypercholesterolemia, unspecified; E78.0 - Pure hypercholesterolemia (3) Hypertension Code(s): I10 - ESSENTIAL (PRIMARY) HYPERTENSION Qualifiers: Hypertension type: essential hypertension Qualified Code(s): I10 - Essential (primary) hypertension (4) Hypothyroidism Code(s): E03.9 - HYPOTHYROIDISM, UNSPECIFIED Qualifiers: Hypothyroidism type: unspecified Qualified Code(s): E03.9 - Hypothyroidism , unspecified (5) Anemia Code(s): D64.9 - ANEMIA, UNSPECIFIED
--- NOTE | 2018-05-08 13:15 | DS ---
Physical Examination Vital Signs: Vital Signs Temperature 98.4 F 05/08/18 09:30 Pulse Rate 97 H 05/08/18 09:30 Respiratory Rate 17 05/08/18 09:30 Blood Pressure 159/69 05/08/18 09:30 O2 Sat by Pulse Oximetry (%) 98 05/08/18 09:45 Constitutional: Yes: No Distress HENT: Yes: Atraumatic Neck: Yes: Supple Cardiovascular: Yes: Regular Rate and Rhythm Respiratory: Yes: CTA Bilaterally Gastrointestinal: Yes: Normal Bowel Sounds Extremities: Yes: WNL Neurological: Yes: Alert, Oriented Labs: CBC, BMP 05/07/18 07:35 05/05/18 06:45 Discharge Summary Reason For Visit: CLOSED FRACTURE OF RIGHT HIP Current Active Problems Anemia (Acute) Closed right hip fracture (Acute) Hyperlipidemia (Acute) Hypertension (Acute) Hypothyroidism (Acute) Condition: Fair - Instructions Referrals: Oscar Mi MD [Staff Physician] - [facility] - Home Medications Comprehensive Discharge Medication List: Ambulatory Orders Levothyroxine [Synthroid -] 25 mcg PO DAILY 02/06/15 Atenolol [Tenormin -] 50 mg PO DAILY 03/09/17 Lisinopril 5 mg PO DAILY 05/04/18 Simvastatin [Zocor -] 20 mg PO HS 05/04/18 lovenox for dvt ppx dc snf
[2018-05-08 14:00] VITALS: BP 121/66; PULSE 65; TEMP 97.7
--- NOTE | 2018-05-08 17:22 | PN ---
Progress Note (short form) - Note Progress Note: Pt comf. af vss RLE dressings cdi calves soft nt NVID a/p: s/p R hip IM nail -pain control -dvt proph -stable for dc -f/u as outpt 2-3 weeks
== END 2018-05-08 17:51 | DRG 481 ==
LOC: JER 09:37 → JERBED 12:11 → J6S 15:18
PROVIDERS: ADMIT Internal Medicine; ATTEND Internal Medicine
PROC: 0QS606Z Reposition Right Upper Femur with Intramedullary Internal Fixation Device, Open Approach (ICD-10-PCS; principal; 2018-05-04 18:00)
PROC: 30233N1 Transfusion of Nonautologous Red Blood Cells into Peripheral Vein, Percutaneous Approach (ICD-10-PCS; 2018-05-06)
DX: S72.141A Displaced intertrochanteric fracture of right femur, initial encounter for closed fracture (principal); D62 Acute posthemorrhagic anemia; S72.21XA Displaced subtrochanteric fracture of right femur, initial encounter for closed fracture; I10 Essential (primary) hypertension; D64.9 Anemia, unspecified; E03.9 Hypothyroidism, unspecified; E78.5 Hyperlipidemia, unspecified; W00.0XXA Fall on same level due to ice and snow, initial encounter; Y93.29 Activity, other involving ice and snow; Y92.89 Other specified places as the place of occurrence of the external cause; Y99.8 Other external cause status; Z87.891 Personal history of nicotine dependence; H81.10 Benign paroxysmal vertigo, unspecified ear
CPT/HCPCS: 36415; 36430; 71045-TC-FY; 73523-TC-FY; 73552-TC-RT-FY; 76000-TC-FY; 80053; 82550; 84484; 85025; 85027; 85610; 85730; 86850; 86900; 86901; 86922; 93005; 93010; 94010; 94760; 97116-GP; 99284-25; J7030; P9038; P9058